=== PATIENT | male | born 1955 | race Caucasian/White ===

== ENCOUNTER → 2017-09-12 | Outpatient (CLI) | payer MEDICAID ==
[~2017-09-12] MED LIST: ACET-1966 PO; ALB0.5 IH; ALLO-2 PO; ASCO-191 PO; CYCL10TA29 PO; DAPA10TA PO; DAPA5TAB PO; DIA5 PO; EZET10TA41 PO; FENO145T PO; FLUT1DIS29 IH; FURO-45 PO; HYDR12.561 PO; LANI SUBQ; LEVA0.6320 IH; LISI20TA29 PO; MIRT-22 PO; MONT10TA4 PO; MULT1TAB64 PO; NEBI5TAB PO; OMEG-11 PO; OMEP40CA48 PO; OXYGENHOME INH; PROP10TA58 PO; PROP40TA45 PO; ROSU10TA3 PO; ROSU20TA23 PO; ROSU20TA3 PO; SIMV-54 PO; SITA100T PO; TOPI-119 PO; TRIA15OI20 TP; VERA240T12 PO; VERA360C6 PO; WARF-18 PO; WARF2.5T11 PO; [UNRECOGNIZED DRUG - CODE] PO
== END ==
LOC: LAB 14:33
PROVIDERS: ATTEND Internal Medicine Hematology
DX: D75.1 Secondary polycythemia (principal)
CPT/HCPCS: 36415; 85027

== ENCOUNTER 2017-09-18 13:26 | Outpatient (RCR) | payer MEDICAID ==
[~2017-09-18] VITALS: Ht 172.7 cm; Wt 106.7 kg
[~2017-09-18 13:26] MED LIST changes: +ROSU10TA13 PO; -ROSU10TA3 PO; +ROSU20TA13 PO; -ROSU20TA3 PO
[2017-09-18 13:37] VITALS: BP 118/74
[2017-09-18] MEDS ORDERED: MONT10TA PO (13:58)
[2017-09-18] MEDS ORDERED: VERA240T12 PO (13:58)
[2017-09-18] MEDS ORDERED: OXCA600T32 PO (13:58)
[2017-09-18] MEDS ORDERED: DULO60CA7 PO (13:58)
[2017-09-18] MEDS ORDERED: LEVA15HF IH (13:58)
[2017-09-18] MEDS ORDERED: NEBI5TAB PO (13:58)
[2017-09-18 14:22] LABS: PLATELET COUNT, AUTOMATED 298 K/uL (150-450)
[2017-09-18] MEDS ORDERED: IPRA3AMP21 IH (14:22)
[2017-09-18] MEDS ORDERED: LEVA0.6320 IH (14:22)
--- NOTE | 2017-09-18 20:20 | ONCOLOGY FOLLOW UP NOTE ---
EVENT DATE: September 18, 2017 DIAGNOSES 1. Secondary erythrocytosis. 2. Chronic obstructive pulmonary disease. 3. History of deep venous thrombosis left lower extremity. CHIEF COMPLAINT Patient is here today for followup of his secondary erythrocytosis. HEMATOLOGY HISTORY Patient is a 61-year-old male with past medical history of diabetes mellitus, hypertension, hyperlipidemia, COPD, ex-smoker, who was found recently to have high red blood cells and hemoglobin. His CBC on February 26, 2017 did reveal white blood cell count at 13.2 with absolute lymphocytic count 3.9 and absolute neutrophil count 8.6. Hemoglobin was 18.7, hematocrit 65.5% and red blood cells were 6.8. Patient has a history of COPD and he is an ex-smoker. JAK2 mutation analysis for V617F mutation and Exon 12 mutation came back negative, and the isobuteine level came back normal at 10, consistent with secondary erythrocytosis. HISTORY OF PRESENT ILLNESS Patient is here today for followup of his secondary erythrocytosis. He is complaining of some runny nose. He has also cough with expectoration, shortness of breath and wheezing. He has lower back pain. He has occasional headache and he is weak, tired and fatigued. PAST MEDICAL HISTORY 1. Erythrocytosis. 2. Diabetes mellitus. 3. Hypercholesterolemia. 4. Hypertension. 5. DVT left lower extremity on Coumadin for 10 years. 6. Congestive heart failure. 7. COPD. PAST SURGICAL HISTORY Appendectomy. SOCIAL HISTORY The patient is single with no children. He is disabled because of his congestive heart failure. He quit smoking 15 years ago after one and a half packs a day for 30 years. Denies any use of alcohol or illicit drugs. FAMILY HISTORY Mother had chronic leukemia. Sister had gynecologic cancer and also breast cancer. Father had bone cancer. CURRENT MEDICATIONS 1. Crestor 20 mg daily. 2. Verapamil 360 mg daily. 3. Farxiga 10 mg daily. 4. Insulin 78 units subcutaneously daily. 5. Cyclobenzaprine 10 mg at bedtime as needed. 6. Omeprazole 40 mg daily. 7. Advair 500/50 twice daily by inhalation. 8. Lasix 20 mg every three days. 9. Mirtazapine 15 mg at bedtime. 10. Lisinopril 20 mg twice daily. 11. Singulair 10 mg daily. 12. Multivitamin one daily. 13. [place]-3 fatty acids/fish oil 1000 mg capsule two daily. 14. Tylenol 325 mg two tablets as needed. 15. Oxygen as needed. 16. Vitamin C 1000 mg daily. 17. Coumadin 5 mg Friday, Friday, Friday, Friday, Friday, and 2.5 mg Friday and . ALLERGIES WELLBUTRIN and SOME ANTIBIOTICS, he does not remember the names. REVIEW OF SYSTEMS CONSTITUTIONAL: No appetite or weight change. No fever, chills or sweating. No recent infection. HEENT: Ears: No tinnitus or hearing problem. Nose: He has nasal discharge. Throat: No sore throat or mouth ulcers. Eyes: No diplopia or visual changes. RESPIRATORY: He has cough with expectoration, shortness of breath and wheezing. GASTROINTESTINAL: He has constipation. NEUROLOGICAL: He has occasional headache. HEMATOLOGICAL: He is weak, tired and fatigued. CARDIOVASCULAR: No chest pain, orthopnea, or paroxysmal nocturnal dyspnea (PND) . No edema. No palpitations. GENITOURINARY: No hematuria or dysuria. MUSCULOSKELETAL: He has lower back pain. NEUROLOGICAL: He has headache. SKIN: No skin rash or lumps. PSYCHIATRIC: No anxiety or depression. PHYSICAL EXAMINATION GENERAL: Looks stable. Well-developed, well-nourished, and in no acute distress. VITAL SIGNS: Blood pressure 118/74, pulse 88 per minute, respirations 16 per minute, temperature 96.7, pulse ox 91% on room air. HEENT: Head: Atraumatic. No sinus tenderness to palpation. Eyes: No icterus or conjunctivitis. Mouth and throat: No oral thrush or mucositis. NECK: Supple. No cervical or supraclavicular lymphadenopathy. LUNGS: Clear to auscultation and percussion bilaterally. HEART: Regular rate and rhythm. No gallops, murmurs, clicks or rubs. ABDOMEN: Soft and lax. No tenderness. No hepatosplenomegaly. No masses. EXTREMITIES: There is mild edema. LYMPHATICS: No peripheral lymphadenopathy. NEUROLOGICAL: He has tremors in the hands.PSYCHIATRIC: Mood and affect appear normal. SKIN: No skin rash, bruise or purpuric eruption. DIAGNOSTIC DATA CBC showed a white count of 10.2, hemoglobin 17.2, hematocrit 55%, platelets 278 ,000 and MCV 70.6. ASSESSMENT 1. Secondary erythrocytosis given that his JAK2 mutation analysis for V617F mutation and Exon 12 mutation came back negative, and his erythropoietin level was normal at 10. His current hematocrit is 55%. I am planning to proceed with a phlebotomy of 500 mL of blood if his hematocrit is at or above 55%. I am planning to check his CBC on a monthly basis, and I will see him in three months with CBC and will proceed with phlebotomy as indicated. 2. Lymphocytosis, and his flow cytometry was negative for lymphoproliferative disorder. We will continue to monitor. 3. Chronic obstructive pulmonary disease. 4. History of tobacco abuse. 5. History of deep venous thrombosis, left lower extremity, on Coumadin for a long time. 6. Diabetes mellitus, on treatment. 7. Hypertension, on treatment. PLAN 1. Phlebotomize 500 mL of blood if hematocrit at or above 55%. 2. CBC to be checked monthly. 3. Patient is to return in three months with CBC. 4. Patient is to contact us for any new concerns or complaints. ELISE
== END 2017-10-03 09:14 | disposition home or self-care (01) ==
LOC: ONC 13:26
PROVIDERS: ATTEND Internal Medicine Hematology
DX: D75.1 Secondary polycythemia (principal); D72.820 Lymphocytosis (symptomatic); J44.9 Chronic obstructive pulmonary disease, unspecified; Z86.718 Personal history of other venous thrombosis and embolism; Z79.01 Long term (current) use of anticoagulants; E11.9 Type 2 diabetes mellitus without complications; I10 Essential (primary) hypertension; R05 Cough; R06.02 Shortness of breath; M54.5 Low back pain; R53.1 Weakness; R53.83 Other fatigue; Z87.891 Personal history of nicotine dependence; K59.00 Constipation, unspecified
CPT/HCPCS: 36415; 85025; G0463; 99212

== ENCOUNTER → 2017-10-13 | Outpatient (CLI) | payer MEDICAID ==
[~2017-10-13] MED LIST changes: +DULO60CA7 PO; +IPRA3AMP21 IH; +LEVA15HF IH; +MONT10TA PO; +OXCA600T32 PO
== END ==
LOC: LAB 14:21
PROVIDERS: ATTEND Internal Medicine Hematology
DX: D75.1 Secondary polycythemia (principal)
CPT/HCPCS: 36415; 85027; 99195

== ENCOUNTER → 2017-11-11 | Outpatient (CLI) | payer MEDICAID ==
[~2017-11-11] MED LIST changes: -WARF-18 PO; +WARF5TAB23 PO
[2017-11-11 14:49] VITALS: BP 135/86
== END ==
LOC: LAB 14:24
PROVIDERS: ATTEND Internal Medicine Hematology
DX: D75.1 Secondary polycythemia (principal)
CPT/HCPCS: 85027

== ENCOUNTER 2017-11-19 15:58 | Emergency (ER) | payer MEDICAID ==
[~2017-11-19] VITALS: Ht 175.3 cm; Wt 106.6 kg
[~2017-11-19 15:58] MED LIST changes: -FENO145T PO; +FENO145T36 PO
[2017-11-19 16:01] VITALS: BP 134/71
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
[2017-11-19 16:36] LABS: PLATELET COUNT, AUTOMATED 326 K/uL (150-450)
[2017-11-19] MEDS ORDERED: MIRT45TA68 PO (16:36)
[2017-11-19] MEDS ORDERED: TOPI-120 PO (16:36)
[2017-11-19] MEDS ORDERED: CYCL10TA29 PO (21:31)
[2017-11-19] MEDS ORDERED: LANI SUBQ (21:31)
[2017-11-19] MEDS ORDERED: DULA1.5P SQ (21:31)
[2017-11-19] MEDS ORDERED: NUT.237L82 (21:31)
[2017-11-19] MEDS ORDERED: ABILIF5PT PO (21:31)
[2017-11-20] MEDS ORDERED: FURO-45 PO (15:44)
[2017-11-20] MEDS ORDERED: LISI20TA29 PO (15:45)
[2017-11-20] MEDS ORDERED: CHOL10005 PO (15:48)
== END 2017-11-19 17:17 ==
LOC: ER 16:06
DX: R45.850 Homicidal ideations (principal)
CPT/HCPCS: 36415; 80156; 80164; 80178; 80305; 81001; 83735; 84443; 85025; 99284; G0480; 80320; 80329; 82040; 82247; 82310; 82374; 82435; 82565; 82947; 84075; 84132; 84155; 84295; 84450; 84460; 84520

== ENCOUNTER 2017-11-19 16:45 | Inpatient (IN) | payer MEDICAID ==
[~2017-11-19] VITALS: Ht 175.3 cm; Wt 106.6 kg
[~2017-11-19 16:45] MED LIST changes: +MIRT45TA68 PO; +TOPI-120 PO
[2017-11-19 20:37] VITALS: BP 137/90
[2017-11-19] MEDS ORDERED: NUT.237L82 (21:31)
[2017-11-19] MEDS ORDERED: LANI SUBQ (21:31)
[2017-11-19] MEDS ORDERED: DULA1.5P SQ (21:31)
[2017-11-19] MEDS ORDERED: CYCL10TA29 PO (21:31)
[2017-11-19] MEDS ORDERED: ABILIF5PT PO (21:31)
[2017-11-19] MEDS ORDERED: LISINOPRIL 20 MG TAB PO SCH (21:40)
[2017-11-19] MEDS ORDERED: ARIPiprazole 10 MG TAB PO SCH (21:40)
[2017-11-19] MEDS ORDERED: TOPIRAMATE 25 MG TAB PO SCH (21:40)
[2017-11-19] MEDS: ARIPiprazole 10 MG TAB PO SCH (22:43)
[2017-11-19] MEDS: MIRTAZAPINE PO SCH (22:43)
[2017-11-19] MEDS: LISINOPRIL 20 MG TAB PO SCH (22:43)
[2017-11-19] MEDS: CYCLOBENZAPRINE HCL 10 MG TAB PO SCH (22:43)
[2017-11-19] MEDS: TOPIRAMATE 25 MG TAB PO SCH (22:44)
[2017-11-20 07:00] VITALS: BP 104/66
[2017-11-20] MEDS ORDERED: DULoxetine HCL 30 MG CAPCR PO SCH (08:00)
[2017-11-20] MEDS: LISINOPRIL 20 MG TAB PO SCH ×2 (08:36→20:33)
[2017-11-20] MEDS: DULoxetine HCL 30 MG CAPCR PO SCH ×2 (08:36→13:55)
[2017-11-20] MEDS: TOPIRAMATE 25 MG TAB PO SCH ×2 (08:37→20:32)
[2017-11-20 08:51] LABS: INR 0.9
[2017-11-20] MEDS ORDERED: WARFARIN SOD 5 MG TAB PO SCH (13:00)
[2017-11-20] MEDS ORDERED: FURO-45 PO (15:44)
[2017-11-20] MEDS ORDERED: LISI20TA29 PO (15:45)
[2017-11-20] MEDS ORDERED: CHOL10005 PO (15:48)
[2017-11-20] MEDS ORDERED: ACETAMINOPHEN 325 MG TAB PO PRN (15:55)
[2017-11-20] MEDS: ARIPiprazole 10 MG TAB PO SCH (20:31)
[2017-11-20] MEDS: PANTOPRAZOLE SOD 20 MG TABEC PO SCH (20:32)
[2017-11-20] MEDS: MIRTAZAPINE PO SCH (20:32)
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
[2017-11-20] MEDS: CYCLOBENZAPRINE HCL 10 MG TAB PO SCH (20:33)
[2017-11-20] MEDS ORDERED: MIRTAZAPINE 30 MG TAB 30 MG TAB PO SCH ×2 (21:00)
[2017-11-20] MEDS ORDERED: INSULIN GLARGINE 100 U/ML 3 ML PEN SUBQ SCH (21:00)
[2017-11-20] MEDS ORDERED: ROSUVASTATIN CALCIUM 10 MG TAB PO SCH ×2 (21:00)
[2017-11-20] MEDS ORDERED: CYCLOBENZAPRINE HCL 10 MG TAB PO SCH ×2 (21:00)
[2017-11-20] MEDS ORDERED: ARIPiprazole 10 MG TAB PO SCH (21:00)
[2017-11-20 21:28] VITALS: BP 122/63
[2017-11-21 03:22] VITALS: BP 108/75
[2017-11-21] MEDS: PANTOPRAZOLE SOD 20 MG TABEC PO SCH (08:20)
[2017-11-21] MEDS: TOPIRAMATE 25 MG TAB PO SCH (08:20)
[2017-11-21] MEDS: LISINOPRIL 20 MG TAB PO SCH (08:22)
[2017-11-21] MEDS: DULoxetine HCL 30 MG CAPCR PO SCH ×2 (08:27→13:58)
[2017-11-21] MEDS ORDERED: CHOLECALCIFEROL 1000 UNIT TAB PO SCH (09:00)
[2017-11-21] MEDS ORDERED: WARF5TAB23 PO (12:37)
[2017-11-21] MEDS ORDERED: ACET-1966 PO (12:47)
--- NOTE | 2017-11-21 21:07 | DISCHARGE SUMMARY ---
DATE OF ADMISSION: November 19, 2017 DATE OF DISCHARGE: November 21, 2017 The patient was seen on the morning of November 21, 2017, at approximately 0940 hours concerning this dictation. FINAL DIAGNOSES 1. Adjustment disorder with disturbance of emotion. 2. Persisting depressive disorder. 3. Social and medical stressors. 4. Rule out sleep apnea. 5. Rule out mood disorder secondary to untreated sleep apnea. REASON FOR ADMISSION This is a 61-year-old male who has [facility] living [facility]. The patient had been following up with [facility]. Live therapist had met the patient in home. The patient had voiced threats of harm to a neighbor. Outpatient providers worked together to bring the patient to the Emergency Room. The patient was placed under an emergency detainment. He was admitted without incident. Throughout stay, the patient remained alert, oriented, and appeared to be an overall accurate historian. The patient admitted to making threats against neighbor, however, was adamant about not going through with them. The patient's neighbor is aware of these threats. The patient was not aggressive on the unit, overall very cooperative and polite throughout his stay. No parasuicidal behaviors were noted. The patient remained on same regimen of outpatient medications while on the unit with the exception of Cymbalta that would be no longer given q.a.m. and at bedtime due to its potential activating effects in this patient who is requiring Remeron to sleep, also likely suffering from sleep apnea. Cymbalta was changed to q.a.m. and q. 1400-hour dosing. The patient was found to have oxygen saturations that dropped below 80 on many occasions throughout the night via pulse oximetry, and the patient was scheduled for a sleep study. The patient's mood improved. The patient was discharged to home adamantly denying suicidal ideation. The patient would continue to follow up with outpatient and home health care nursing as well, who were contacted and saw no gross changes in the patient's behavior. PHYSICAL EXAMINATION Please see emergency room note. Vital signs at time of admission were temperature 97.8, pulse 103, respiratory rate 20, blood pressure 134/71, pulse oximetry 93% on room air. Vital signs at time of discharge were temperature 98.2, pulse 66, respiratory rate 18, blood pressure 108/75, pulse oximetry 93% on room air while awake, while lying down 83%. LABORATORY DATA CBC upon admission notable for white blood cells elevated at 13.6, RBCs elevated at 7.87, and hematocrit elevated at 54.9. Chemistry panel notable for random glucose 73 upon admission. TSH 0.05 and low. Urinalysis notable for urine glucose present. Toxicology screen upon admission was notably negative for substances of abuse. Various labs were drawn since such as lithium, carbamazepine, and valproic acid. The patient was not on any of these, and they were all undetectable. Serum alcohol was less than 10. PT was 12.1. INR noted to be 0.90. This patient is chronically treated. He has a history of blood clots and polycythemia vera. Oxcarbazepine metabolite pending at time of this dictation. Free T4 noted to be 0.66, free T3 of 2.88. Glucose ranged between a low of 62 and 156 on the unit. CONSULTATIONS None. TREATMENT The patient received medications and participated in individual and group therapy. HOSPITAL COURSE The patient remained very calm, cooperative, and polite throughout his stay. The patient was exhibiting no signs of dementia and no signs of combative behavior. The patient is, however, likely suffering from obstructive sleep apnea which could make most, if not all of his medical conditions worse or be the source of them. The patient historically is aware of this, but refuses to wear nasal cannula oxygen at night. The patient, again, was cooperative with the interview. The patient's providers are also aware of need for further thyroid examination at this time. The patient's home health nursing agency was contacted. They had no difficulties with continuing care with the patient. However, [facility] has terminated care of the patient. CONDITION OF PATIENT ON DISCHARGE Stable. Considered minimal risk to himself or others and appropriate for outpatient care. DISPOSITION The patient discharged to home. The patient would follow up with sleep study as scheduled. He would take medications as prescribed previously to admission. See medication recommendations. The patient would also follow up with home health. The patient would change Cymbalta from a.m. dosing and p.m. dosing to a.m. dosing and q. 1400-hour dosing. The patient would follow up with outpatient providers as scheduled. Risks, benefits, and alternatives of above discharge plan were discussed. Informed consent was given to proceed with the above discharge plan by this competent patient. ELISE
[2017-11-24] MEDS ORDERED: WARFARIN SOD 2.5 MG TAB PO SCH (13:00)
== END 2017-11-21 14:20 | disposition home or self-care (01) | DRG 882 ==
LOC: BHS 16:45
PROVIDERS: ADMIT Psychiatry & Neurology Psychiatry; ATTEND Psychiatry & Neurology Psychiatry
DX: F43.29 Adjustment disorder with other symptoms (principal); F34.1 Dysthymic disorder; R45.850 Homicidal ideations; G47.33 Obstructive sleep apnea (adult) (pediatric); F41.8 Other specified anxiety disorders; G47.30 Sleep apnea, unspecified; F39 Unspecified mood [affective] disorder; I10 Essential (primary) hypertension; D45 Polycythemia vera; E11.9 Type 2 diabetes mellitus without complications; Z62.810 Personal history of physical and sexual abuse in childhood; Z86.718 Personal history of other venous thrombosis and embolism; Z81.8 Family history of other mental and behavioral disorders; Z81.1 Family history of alcohol abuse and dependence; Z81.3 Family history of other psychoactive substance abuse and dependence; Z79.01 Long term (current) use of anticoagulants; Z88.8 Allergy status to other drugs, medicaments and biological substances; I25.2 Old myocardial infarction; Z87.891 Personal history of nicotine dependence
CPT/HCPCS: 36415; 36416; 80183; 82948; 84439; 84481; 85610; J1815

== ENCOUNTER 2018-02-05 12:48 | Outpatient (RCR) | payer MEDICAID ==
[2017-12-18 13:21] VITALS: BP 97/67
--- NOTE | 2017-12-18 17:47 | ONCOLOGY FOLLOW UP NOTE ---
EVENT DATE: December 18, 2017 DIAGNOSES 1. Secondary erythrocytosis. 2. Chronic obstructive pulmonary disease. 3. History of deep venous thrombosis left lower extremity. CHIEF COMPLAINT Patient is here today for followup of his secondary erythrocytosis. HEMATOLOGY HISTORY Patient is a 61-year-old male with past medical history of diabetes mellitus, hypertension, hyperlipidemia, COPD, ex-smoker, who was found recently to have high red blood cells and hemoglobin. His CBC on February 26, 2017 did reveal white blood cell count at 13.2 with absolute lymphocytic count 3.9 and absolute neutrophil count 8.6. Hemoglobin was 18.7, hematocrit 65.5% and red blood cells were 6.8. Patient has a history of COPD and he is an ex-smoker. JAK2 mutation analysis for V617F mutation and Exon 12 mutation came back negative, and the isobuteine level came back normal at 10, consistent with secondary erythrocytosis. HISTORY OF PRESENT ILLNESS Patient is here today for followup of his secondary erythrocytosis. He is doing fine currently. He is complaining of nasal discharge and epistaxis. He has cough with shortness of breath. He has alternating diarrhea and constipation. He has pain in the hips bilaterally. He has also some tingling at the tips of his fingers and headache. PAST MEDICAL HISTORY 1. Erythrocytosis. 2. Diabetes mellitus. 3. Hypercholesterolemia. 4. Hypertension. 5. DVT left lower extremity on Coumadin for 10 years. 6. Congestive heart failure. 7. COPD. PAST SURGICAL HISTORY Appendectomy. SOCIAL HISTORY The patient is single with no children. He is disabled because of his congestive heart failure. He quit smoking 15 years ago after one and a half packs a day for 30 years. Denies any use of alcohol or illicit drugs. FAMILY HISTORY Mother had chronic leukemia. Sister had gynecologic cancer and also breast cancer. Father had bone cancer. CURRENT MEDICATIONS 1. Crestor 20 mg daily. 2. Verapamil 360 mg daily. 3. Farxiga 10 mg daily. 4. Insulin 78 units subcutaneously daily. 5. Cyclobenzaprine 10 mg at bedtime as needed. 6. Omeprazole 40 mg daily. 7. Advair 500/50 twice daily by inhalation. 8. Lasix 20 mg every three days. 9. Mirtazapine 15 mg at bedtime. 10. Lisinopril 20 mg twice daily. 11. Singulair 10 mg daily. 12. Multivitamin one daily. 13. [place]-3 fatty acids/fish oil 1000 mg capsule two daily. 14. Tylenol 325 mg two tablets as needed. 15. Oxygen as needed. 16. Vitamin C 1000 mg daily. 17. Coumadin 5 mg Friday, Friday, Friday, Friday, Friday, and 2.5 mg Friday and . ALLERGIES WELLBUTRIN and SOME ANTIBIOTICS, he does not remember the names. REVIEW OF SYSTEMS CONSTITUTIONAL: No appetite or weight change. No fever, chills or sweating. No recent infection. HEENT: Ears: No tinnitus or hearing problem. Nose: He has nasal discharge and epistaxis.. Throat: No sore throat or mouth ulcers. Eyes: No diplopia or visual changes. RESPIRATORY: He has cough and shortness of breath. No expectoration or wheezing. GASTROINTESTINAL: He has alternating diarrhea and constipation. NEUROLOGICAL: He has occasional headache. HEMATOLOGICAL: He is weak, tired and fatigued. CARDIOVASCULAR: No chest pain, orthopnea, or paroxysmal nocturnal dyspnea (PND) . No edema. No palpitations. GENITOURINARY: No hematuria or dysuria. MUSCULOSKELETAL: He has pain in the hips bilaterally. NEUROLOGICAL: He has tingling and numbness at the tips of the fingers, and headache occasionally. SKIN: No skin rash or lumps. PSYCHIATRIC: No anxiety or depression. PHYSICAL EXAMINATION GENERAL: Looks stable. Well-developed, well-nourished, and in no acute distress. VITAL SIGNS: Blood pressure 97/64, pulse 94 per minute, respirations 16 per minute, temperature 97.1, pulse ox 90% on room air. HEENT: Head: Atraumatic. No sinus tenderness to palpation. Eyes: No icterus or conjunctivitis. Mouth and throat: No oral thrush or mucositis. NECK: Supple. No cervical or supraclavicular lymphadenopathy. LUNGS: Clear to auscultation and percussion bilaterally. HEART: Regular rate and rhythm. No gallops, murmurs, clicks or rubs. ABDOMEN: Soft and lax. No tenderness. No hepatosplenomegaly. No masses. EXTREMITIES: There is mild edema. LYMPHATICS: No peripheral lymphadenopathy. NEUROLOGICAL: He has tremors in the hands.PSYCHIATRIC: Mood and affect appear normal. SKIN: No skin rash, bruise or purpuric eruption. DIAGNOSTIC DATA CBC showed a white count of 13.6, hemoglobin 16.9, hematocrit 54.9%, platelets 326,000. Chem panel normal except BUN 23, chloride 96, sodium 136. Other parameters are normal. ASSESSMENT 1. Secondary erythrocytosis given that JAK2 mutation analysis for V617F mutation and Exon 12 mutation came back negative and his erythropoietin level was normal at 10. His current hematocrit is 54.9%, and I am planning to proceed with phlebotomy of 500 mL of blood, which the patient needs roughly every other month. I will continue phlebotomy whenever his hematocrit is above 55%. I will see him again in three months with CBC, and I will check his CBC in six weeks from now. 2. History of lymphocytosis, and flow cytometry was negative for lymphoproliferative disorder. We will continue to monitor. 3. Chronic obstructive pulmonary disease. 4. History of tobacco abuse. 5. History of deep venous thrombosis, left lower extremity, on Coumadin. 6. Diabetes mellitus on treatment. 7. Hypertension. PLAN 1. Phlebotomize 500 mL of blood if hematocrit above or at 55%. 2. CBC to be checked every six weeks. 3. Patient is to return in three months with CBC. 4. Patient is to contact us for any new concerns or complaints. [facility]
[~2018-02-05 12:48] MED LIST changes: +ABILIF5PT PO; +CHOL10005 PO; +DULA1.5P SQ; +NUT.237L82
== END 2018-03-17 ==
LOC: SPU 12:48
PROVIDERS: ATTEND Internal Medicine Hematology
DX: D75.1 Secondary polycythemia (principal); D72.820 Lymphocytosis (symptomatic); J44.9 Chronic obstructive pulmonary disease, unspecified; Z86.718 Personal history of other venous thrombosis and embolism; Z79.01 Long term (current) use of anticoagulants; E11.9 Type 2 diabetes mellitus without complications; I10 Essential (primary) hypertension; R05 Cough; R06.02 Shortness of breath; R19.7 Diarrhea, unspecified; K59.00 Constipation, unspecified; Z87.891 Personal history of nicotine dependence; Z79.899 Other long term (current) drug therapy; Z79.4 Long term (current) use of insulin; R53.1 Weakness; R53.83 Other fatigue
CPT/HCPCS: 36415; 85027; G0463; 99212

== ENCOUNTER → 2018-04-08 | Outpatient (REF) | payer MEDICAID ==
[~2018-04-08] MED LIST changes: +IPRA3AMP10 IH; -IPRA3AMP21 IH; -ROSU10TA13 PO; +ROSU10TA5 PO; -ROSU20TA13 PO; +ROSU20TA5 PO
[2018-04-08 15:56] LABS: PLATELET COUNT, AUTOMATED 287 K/uL (150-450)
== END ==
LOC: ZZSENDIN 15:35
PROVIDERS: ATTEND Physician Assistant
DX: D75.1 Secondary polycythemia (principal)
CPT/HCPCS: 85025

== ENCOUNTER → 2018-05-27 | Outpatient (CLI) | payer MEDICAID ==
--- NOTE | 2018-05-27 15:20 | RADIOLOGY IMAGING REPORT ---
FACILITY: [facility] PATIENT NAME: Cirilo Savage : 1955 MR: [id number] V: [id number] EXAM DATE: ORDERING PHYSICIAN: HUI PRAKASH TECHNOLOGIST: Location: [facility] - [place] Patient: Cirilo Savage : 1955 Visit/Account:[id number] Date of Sevice: 05/27/2018 CHEST PA AND LAT History: Shortness of breath and cough and chest pain x1 week FINDINGS: Comparison studies: None. Tubes and Lines: None. Lungs and pleura: There is slight indistinct appearance to the left cardiac border but I believe th is is related to pericardial fat pad which can be seen in the lateral view. I do not believe it repr esents lingular consolidation. Lung parenchyma is well-aerated. Mediastinum: normal. Cardiac silhouette: normal . Osseous structures: Unremarkable for age . IMPRESSION: Negative exam Report Dictated By: Jaylon Madison MD at 05/27/2018 3:13 PM Report E-Signed By: Jaylon Madison MD at 05/27/2018 3:16 PM WSN:[id number]
== END ==
LOC: RAD 14:36
PROVIDERS: ATTEND Physician Assistant Medical
DX: R06.02 Shortness of breath (principal)
CPT/HCPCS: 71046

== ENCOUNTER → 2018-06-05 | Outpatient (REF) | payer MEDICAID | LOC: ZZSENDIN 15:42 | PROVIDERS: ATTEND Physician Assistant | DX: I50.40 Unspecified combined systolic (congestive) and diastolic (congestive) heart failure (principal) | CPT/HCPCS: 83880 ==

== ENCOUNTER → 2018-06-15 | Outpatient (CLI) | payer MEDICAID ==
[~2018-06-15] MED LIST changes: +REGADENOSON 0.4 MG/5 ML SYR ONE
--- NOTE | 2018-06-15 14:50 | RT STRESS TEST REPORT ---
[place] [facility] [place] PATIENT NAME: NIKOLAY RODRIGUZE : [id number] MR: [id number] V: [id number] EXAM DATE: ORDERING PHYSICIAN: HUI PRAKASH TECHNOLOGIST: [employer] Time: 2018-06-15 14:29:01 Total Exercise Time: 00:01:00 Test Indications: Chest Discomfort Medications: see nuc med sheet Protocol: LEXISCAN Max HR: 097 BPM 60% of Pred: 160 BPM Max BP: 153/088 mmHG Max Work Load: 1.0 METS The patient did not have any chest pain or ST depression during the test. See the nuclear images for details. Confirmed by INES BELTRE ([id number]) on 06/15/2018 2:49:55 PM Referred By: Heriberto Addison Overread By: INES BELTRE
--- NOTE | 2018-06-16 10:23 | RADIOLOGY IMAGING REPORT ---
FACILITY: [facility] PATIENT NAME: Cirilo Savage : 1955 MR: [id number] V: [id number] EXAM DATE: ORDERING PHYSICIAN: HUI PRAKASH TECHNOLOGIST: Location: [facility] - [place] Patient: Cirilo Savage : 1955 Visit/Account:[id number] Date of Sevice: 06/15/2018 EXAMINATION: Single isotope SPECT imaging with regadenoson infusion and gated SPECT imaging. DATE OF EXAMINATION: June 15, 2018. DATE OF INTERPRETATION: June 16, 2018. REQUESTING PHYSICIAN: HUI PRAKASH. INDICATION: The patient is a 62-year-old male evaluated for CAD. PROCEDURE: After informed consent the patient received an intravenous injection of 12.9 mCi of Tc-99 m sestamibi followed at an appropriate time interval by rest imaging. The patient then subsequently received an intravenous infusion of 0.4 mg of regadenoson per protocol without complication. Resting heart rate was 81 bpm with a peak heart rate of 97 bpm. Blood pressure at rest was 130 / 85 and fol lowing infusion was 153 / 88. Baseline EKG demonstrates normal sinus rhythm with poor R wave progres jesica. There were no diagnostic EKG changes of ischemia following infusion. Symptoms were nonspecifi c. The patient then received an intravenous injection of 29.9 mCi of Tc-99m sestamibi followed by st ress imaging. RAW DATA: Examination of the summed raw data revealed a fair quality study. MYOCARDIAL PERFUSION: The tomographic images demonstrate normal perfusion both at rest and at stress .. GATED IMAGES: The gated images demonstrate an ejection fraction of 70% or greater with normal wall m otion. IMPRESSION: 1. Baseline EKG shows normal sinus rhythm without significant changes during stress. 2. Normal myocardial perfusion scan. 3. Normal LV systolic function; LVEF 70% or greater%. 4. Based on the results of this exam, the patient appears to be at low risk for future cardiovascular events. Report Dictated By: Go Hickman MD at 06/16/2018 10:16 AM Report E-Signed By: Go Hickman MD at 06/16/2018 10:19 AM WSN:[id number]
== END ==
LOC: NUC 00:52
PROVIDERS: ATTEND Physician Assistant Medical
DX: R06.02 Shortness of breath (principal)
CPT/HCPCS: 78452; 93017; A9500; J2785

== ENCOUNTER → 2018-06-17 | Outpatient (REF) | payer MEDICAID ==
[~2018-06-17] MED LIST changes: -REGADENOSON 0.4 MG/5 ML SYR ONE
== END ==
LOC: ZZSENDIN 15:04
PROVIDERS: ATTEND Physician Assistant
DX: R06.02 Shortness of breath (principal)
CPT/HCPCS: 85379

== ENCOUNTER → 2018-06-22 | Outpatient (CLI) | payer MEDICAID | LOC: NUC 08:40 | PROVIDERS: ATTEND Physician Assistant | DX: Z02.9 Encounter for administrative examinations, unspecified (principal) ==

== ENCOUNTER → 2018-06-25 | Outpatient (CLI) | payer MEDICAID ==
--- NOTE | 2018-06-25 14:06 | RADIOLOGY IMAGING REPORT ---
[place] [facility] [place] Cirilo Savage : 1955 MR: [id number] V: [id number] EXAM DATE: ORDERING PHYSICIAN: TARA MONTANA TECHNOLOGIST: Location: [facility] - [place] Patient: Cirilo Savage : 1955 Visit/Account:[id number] Date of Sevice: 06/25/2018 CHEST W/O CONTRAST History: Shortness of breath, history COPD, chest tightness and cough x1 month TECHNIQUE: Contiguous axial images were performed through the chest to the level of the adrenal gla nds. No IV contrast was administered. Coronal and sagittal reformatting was also performed. COMPARISON STUDIES: Two-view chest May 27, 2018. Lungs / Pleura: negative. Mediastinum/nodes: There is a small nonspecific mediastinal lymph nodes including small prevascular space, subcarinal and paratracheal lymph nodes nodes. Heart and vessels: negative. Musculoskeletal / Body wall: Spondylotic changes of the thoracic spine Upper abdomen: Tiny incidental calcification in the right adrenal gland may be related to prior hem orrhage IMPRESSION: No demonstration of pulmonary infiltrates emphysema or bronchiectasis. Report Dictated By: Maddy Cárdenas MD at 06/25/2018 1:53 PM Report E-Signed By: Maddy Cárdenas MD at 06/25/2018 2:02 PM WSN:[email or web address]
== END ==
LOC: CT 02:40
PROVIDERS: ATTEND Physician Assistant
DX: M47.894 Other spondylosis, thoracic region (principal); E27.49 Other adrenocortical insufficiency
CPT/HCPCS: 71250

== ENCOUNTER → 2018-09-25 | Outpatient (CLI) | payer MEDICAID ==
[~2018-09-25] MED LIST changes: +LOR5/325 PO; +NEBI10TA4 PO; +TOPI-121 PO
== END ==
LOC: LAB 12:03
PROVIDERS: ATTEND Internal Medicine Cardiovascular Disease
DX: R06.02 Shortness of breath (principal); I10 Essential (primary) hypertension
CPT/HCPCS: 36415; 83880

== ENCOUNTER → 2018-09-29 | Outpatient (CLI) | payer MEDICAID | LOC: US 01:20 | PROVIDERS: ATTEND Internal Medicine Cardiovascular Disease | DX: I07.1 Rheumatic tricuspid insufficiency (principal); I51.7 Cardiomegaly | CPT/HCPCS: C8929; Q9957 ==

== ENCOUNTER 2018-10-20 14:25 | Outpatient (RCR) | payer MEDICAID ==
[~2018-10-20 14:25] MED LIST changes: +MIRT45TA4 PO; -MIRT45TA68 PO
--- NOTE | 2018-10-21 09:41 | RADIOLOGY IMAGING REPORT ---
FACILITY: [facility] - [place] PATIENT NAME: Cirilo Savage : 1955 MR: [id number] V: [id number] EXAM DATE: ORDERING PHYSICIAN: TARA MONTANA TECHNOLOGIST: [place] [facility] [place] Patient: Cirilo Savage : 1955 Visit/Account:[id number] Date of Sevice: 10/20/2018 NM THYROID UPTAKE - MULT. DE Indication: Evaluate for hyperthyroidism. Comparison: None. Radiotracer: 38.6 mCi I-123 was ingested. Images were obtained 4 hours and 24 hours after radiotrace r ingested.. Findings: 4 hour uptake is 6.1%. 24 hour radiotracer uptake is 10.2% (normal is 5-35% uptake). There is symmetric uptake in both right and left thyroid lobe. There is no evidence of a hot nodule or col d defect. IMPRESSION: Normal 6 hour and normal 24 hour I-123 thyroid uptake scan. No evidence of hyperthyroidis m. Report Dictated By: Navid Mir at 10/21/2018 9:24 AM Report E-Signed By: Navid Mir at 10/21/2018 9:36 AM WSN:[id number]
== END 2018-10-20 18:00 | disposition home or self-care (01) ==
LOC: EDSTATUS 14:25 → NUC 14:25
PROVIDERS: ATTEND Physician Assistant
DX: E05.90 Thyrotoxicosis, unspecified without thyrotoxic crisis or storm (principal)
CPT/HCPCS: 78014; A9516

== ENCOUNTER → 2019-01-28 | Outpatient (CLI) | payer MEDICAID ==
[~2019-01-28] MED LIST changes: -ROSU20TA23 PO; +ROSU20TA24 PO; -VERA240T12 PO; +VERA240T95 PO
== END ==
LOC: LAB 13:18
PROVIDERS: ATTEND Psychiatry & Neurology Neurology
DX: R25.1 Tremor, unspecified (principal)
CPT/HCPCS: 36415; 82040; 82140; 82247; 82248; 84075; 84155; 84450; 84460; 86038

== ENCOUNTER 2019-02-17 21:05 | Inpatient (IN) | payer MEDICAID ==
[~2019-02-17] VITALS: Ht 172.7 cm; Wt 94.8 kg
[~2019-02-17 21:05] MED LIST changes: -BENZ1 PO; -DEUT6TAB PO; -LISI-362 PO; -LURA60TA PO; -METH5TAB87 PO; -MIRT45TA8 PO; -TOPI50TA92 PO; -VENL150T10 PO
[2019-02-17] MEDS ORDERED: NS(*) 0.9% 1000 ML BAG 1,000 ML IV ONE (21:12)
[2019-02-17] MEDS ORDERED: DIPHTH/TETANUS/ACEL. PERTUSSIS IM ONE (21:15)
[2019-02-17 21:24] LABS: PLATELET COUNT, AUTOMATED 288 K/uL (150-450)
[2019-02-17 21:34] LABS: INR 2.01
[2019-02-17] MEDS ORDERED: IOPAMIDOL 76% 100 ML INFUS BTL 100 ML ONE (21:36)
--- NOTE | 2019-02-17 21:39 | ER Report ---
History and Physical Time Seen By MD: 21:39 HPI/ROS CHIEF COMPLAINT: Found down HISTORY OF PRESENT ILLNESS: Patient is a 63-year-old male here after being found down at home suspected be down for the last 2 days. Home health came to evaluate the patient and heard him yelling for help. Patient reports that he attempted to get up and tripped and fell and complains of left sided back, neck pain, left hip pain and was unable to get up after falling. Patient has mildly disoriented, E fast was negative. REVIEW OF SYSTEMS: Constitutional: No fever, no chills, disoriented Eyes: No discharge. ENT: No sore throat. Cardiovascular: No chest pain, no palpitations. Respiratory: No cough, no shortness of breath. Gastrointestinal: No abdominal pain, no vomiting. Genitourinary: No hematuria. Musculoskeletal: No back pain, + left hip pain Skin: No rashes. Neurological: Neurovascular intact in the distal extremities, mildly disoriented, no cranial nerve deficits Allergies: Coded Allergies: atorvastatin (Verified Adverse Reaction, Intermediate, Myalgia, 08/31/18) Home Meds Active Scripts Hydrocodone Bit/Acetaminophen (HYDROCODON-ACETAMINOPHEN 5-325) 1 Each Tablet, 1 EACH PO Q4-6H PRN for PAIN, #12 TAKE ONE TABLET BY MOUTH EVERY 4-6 HOURS NEEDED FOR PAIN Prov:JUAN MIGUEL NEWELL DO 08/31/18 Dapagliflozin Propanediol (Farxiga) 10 Mg Tablet, 1 TAB PO DAILY, #30 TAB 11 Refills Prov:CHERI MALCOLM MD 08/28/16 Omeprazole (OMEPRAZOLE) 40 Mg Capsule.dr, 1 CAP PO BID, #180 CAP 2 Refills Prov:CHERI MALCOLM MD 06/17/16 Reported Medications Verapamil Hcl (VERAPAMIL ER) 240 Mg Tablet.er, 240 MG PO QDAY 08/31/18 Topiramate (TOPAMAX) 100 Mg Tablet, 120 MG PO QDAY 08/31/18 Insulin Glargine (LANTUS) 100 Unit/Ml Soln, 52 UNIT SUBQ HS, ML 08/31/18 Nebivolol Hcl (BYSTOLIC) 10 Mg Tab, 10 MG PO BID, TAB 08/31/18 Acetaminophen (TYLENOL) 325 Mg Tablet, 650 MG PO Q6H PRN for PAIN, TAB 11/21/17 Warfarin Sodium (WARFARIN SODIUM) 5 Mg Tablet, 5 MG PO QDAY, TAB 5 MG ON SIMMS, , WE, TH, SA @ 1:00PM 11/21/17 Cholecalciferol (Vitamin D3) (VITAMIN D3) 1,000 Unit Tablet, 2000 UNIT PO QDAY, TAB 11/20/17 Lisinopril (LISINOPRIL) 20 Mg Tablet, 20 MG PO QDAY, TAB 11/20/17 Furosemide (FUROSEMIDE) 20 Mg Tablet, 1 TAB PO QDAY, TAB 11/20/17 Cyclobenzaprine Hcl (CYCLOBENZAPRINE HCL) 10 Mg Tablet, 10 MG PO QHS, #9 TAB 11/19/17 Aripiprazole (ABILIFY) 5 Mg Tablet, 5 MG PO QHS, #10 TAB 11/19/17 Dulaglutide (Trulicity) 1.5 Mg/0.5 Ml Pen.injctr, 1.5 MG SQ QWK EACH Friday11/19/17 Nut.tx.gluc.intoler,Lac-Fr,Soy (Glucerna) 237 Ml Liquid, BID 11/19/17 Mirtazapine (MIRTAZAPINE) 45 Mg Tab.rapdis, 45 MG PO QHS 11/19/17 Oxcarbazepine (TRILEPTAL) 600 Mg Tablet, 600 MG PO TID 09/18/17 Montelukast Sodium (SINGULAIR) 10 Mg Tablet, 1 TAB PO QDAY, TAB 09/18/17 Duloxetine HCl (Duloxetine HCl) 60 Mg Capsule.dr, 60 MG PO BID TAKE AT 8:00 AM AND 2:00 PM 09/18/17 Rosuvastatin Calcium (CRESTOR) 20 Mg Tablet, 20 MG PO QHS 01/28/17 Multivitamin (MULTI VITAMIN DAILY) 1 Each Tablet, 1 TAB PO DAILY 03/19/16 York-3 Fatty Acids/Fish Oil (FISH OIL 1,000 MG CAPSULE) 1 Each Capsule, 2 CAP PO DAILY, CAPSULE 03/19/16 Oxygen (OXYGEN) Inha, 2 L INH HS, L 03/19/16 Ascorbic Acid (VITAMIN C) 1,000 Mg Tablet, 1 TAB PO DAILY 03/19/16 Warfarin Sodium (WARFARIN SODIUM) 2.5 Mg Tablet, 1 TAB PO Friday @ 1:00 pm 03/19/16 Hx Smoking: Yes Smoking Status: Former Smoker Exposure to Second Hand Smoke?: Yes Hx Substance Use Disorder: No Hx Alcohol Use: No Constitutional Vital Sign - Last 24 Hours 02/17/19 02/17/19 02/17/19 02/17/19 21:05 21:15 21:15 21:30 Temp 97.6 Pulse 79 86 Resp 39 16 21 B/P (MAP) 192/105 Pulse Ox 89 65 96 O2 Delivery Nasal Cannula O2 Flow Rate 5.0 02/17/19 02/17/19 02/17/19 02/17/19 21:47 22:00 22:30 23:00 Pulse 100 94 83 Resp 27 23 13 B/P (MAP) 151/85 (107) 132/93 (106) 130/94 (106) Pulse Ox 93 91 89 Physical Exam General Appearance: The patient is alert, has no immediate need for airway protection and no signs of toxicity. Disoriented, complaining of pain, unco mfortable appearing Eyes: Pupils equal and round no pallor or injection. ENT, Mouth: Mucous membranes are moist. Respiratory: There are no retractions, lungs are clear to auscultation. Cardiovascular: Regular rate and rhythm. Gastrointestinal: Abdomen is soft and non tender, no masses, bowel sounds normal. Neurological: Neurovascular exam intact in the distal extremities, moving all distal extremities, capillary refill less than 3 seconds Skin: Warm and dry, no rashes. Musculoskeletal: Neck is supple non tender. C-collar in place Tenderness on range of motion of the left proximal hip DIFFERENTIAL DIAGNOSIS: After history and physical exam differential diagnosis was considered for fracture, contusion, intracranial bleed, rhabdomyolysis, electrolyte abnormality, acid base disturbance, dislocation Medical Decision Making Data Points Result Diagram: 02/17/19211402/17/192114 Laboratory Hematology Test 02/17/19 21:15 02/17/19 22:09 Red Blood Count 6.58 M/uL (4.00-5.60) Mean Corpuscular Volume 82.4 fL (80.0-96.0) Mean Corpuscular Hemoglobin 27.5 pg (26.0-33.0) Mean Corpuscular Hemoglobin Concent 33.4 g/dL (32.0-36.0) Red Cell Distribution Width 16.4 % (11.5-14.5) Mean Platelet Volume 9.0 fL (7.2-11.1) Neutrophils (%) (Auto) 81.7 % (39.4-72.5) Lymphocytes (%) (Auto) 2.8 % (17.6-49.6) Monocytes (%) (Auto) 15.2 % (4.1-12.4) Eosinophils (%) (Auto) 0.0 % (0.4-6.7) Basophils (%) (Auto) 0.3 % (0.3-1.4) Nucleated RBC Relative Count (auto) 0.1 /100WBC Neutrophils # (Auto) 17.3 K/uL (2.0-7.4) Lymphocytes # (Auto) 0.6 K/uL (1.3-3.6) Monocytes # (Auto) 3.2 K/uL (0.3-1.0) Eosinophils # (Auto) 0.0 K/uL (0.0-0.5) Basophils # (Auto) 0.1 K/uL (0.0-0.1) Nucleated RBC Absolute Count (auto) 0.02 K/uL Peripheral Blood Smear Yes Y/N Prothrombin Time 23.1 seconds (12.0-14.4) Prothromb Time International Ratio 2.01 Activated Partial Thromboplast Time 32 seconds (23-35) Blood Gas Patient Temperature 97.6 DEGREES Venous Blood pH 7.29 (7.31-7.41) Venous Blood Partial Pressure CO2 47 mmHg Venous Blood Partial Pressure O2 61 mmHg Venous Blood HCO3 22 mmol/L Venous Blood Oxygen Saturation 88 % Venous Blood Base Excess -4 mmol/L Oxygen Liters/Minute 6l Sodium Level 144 mmol/L (137-145) Potassium Level 4.0 mmol/L (3.5-5.0) Chloride Level 107 mmol/L (98-107) Carbon Dioxide Level 25 mmol/L (22-30) Blood Urea Nitrogen 39 mg/dl (9-21) Creatinine 1.00 mg/dl (0.66-1.25) Glomerular Filtration Rate Calc > 60.0 Random Glucose 201 mg/dl (75-110) Lactate 2.2 mmol/L (0.7-2.1) Calcium Level 8.7 mg/dl (8.4-10.2) Total Bilirubin 0.7 mg/dl (0.2-1.3) Aspartate Amino Transf (AST/SGOT) 136 U/L (0-35) Alanine Aminotransferase (ALT/SGPT) 52 U/L (0-56) Alkaline Phosphatase 91 U/L (0-126) Total Creatine Kinase 3994 U/L (55-170) Troponin I < 0.012 ng/ml B-Type Natriuretic Peptide 124 pg/ml (0-100) Total Protein 6.9 g/dl (6.3-8.2) Albumin 3.7 g/dl (3.5-5.0) Lipase 76 U/L (23-300) Serum Alcohol < 10 mg/dl Urine Color Yellow Urine Clarity Clear Urine pH 5.0 pH (4.8-9.5) Urine Specific Leola 1.032 Urine Protein 30 mg/dL (NEGATIVE) Urine Glucose (UA) 500 mg/dL (NEGATIVE) Urine Ketones Trace mg/dL (NEGATIVE) Urine Blood Large (NEGATIVE) Urine Nitrite Negative (NEGATIVE) Urine Bilirubin Negative (NEGATIVE) Urine Urobilinogen Negative mg/dL (0.2-1.9) Urine Leukocyte Esterase Negative (NEGATIVE) Urine RBC 8 /HPF (0-2/HPF) Urine WBC 3 /HPF (0-5/HPF) Urine Squamous Epithelial Cells Few /LPF (NONE-FEW) Urine Bacteria Negative /HPF (NONE-FEW) Urine Hyaline Casts Few /LPF (NONE-FEW) Urine Mucus Few /HPF (NONE-FEW) Chemistry Test 02/17/19 21:15 02/17/19 22:09 White Blood Count 21.2 k/uL (4.5-11.0) Red Blood Count 6.58 M/uL (4.00-5.60) Hemoglobin 18.1 g/dL (14.0-18.0) Hematocrit 54.2 % (42.0-52.0) Mean Corpuscular Volume 82.4 fL (80.0-96.0) Mean Corpuscular Hemoglobin 27.5 pg (26.0-33.0) Mean Corpuscular Hemoglobin Concent 33.4 g/dL (32.0-36.0) Red Cell Distribution Width 16.4 % (11.5-14.5) Platelet Count 288 K/uL (150-450) Mean Platelet Volume 9.0 fL (7.2-11.1) Neutrophils (%) (Auto) 81.7 % (39.4-72.5) Lymphocytes (%) (Auto) 2.8 % (17.6-49.6) Monocytes (%) (Auto) 15.2 % (4.1-12.4) Eosinophils (%) (Auto) 0.0 % (0.4-6.7) Basophils (%) (Auto) 0.3 % (0.3-1.4) Nucleated RBC Relative Count (auto) 0.1 /100WBC Neutrophils # (Auto) 17.3 K/uL (2.0-7.4) Lymphocytes # (Auto) 0.6 K/uL (1.3-3.6) Monocytes # (Auto) 3.2 K/uL (0.3-1.0) Eosinophils # (Auto) 0.0 K/uL (0.0-0.5) Basophils # (Auto) 0.1 K/uL (0.0-0.1) Nucleated RBC Absolute Count (auto) 0.02 K/uL Peripheral Blood Smear Yes Y/N Prothrombin Time 23.1 seconds (12.0-14.4) Prothromb Time International Ratio 2.01 Activated Partial Thromboplast Time 32 seconds (23-35) Blood Gas Patient Temperature 97.6 DEGREES Venous Blood pH 7.29 (7.31-7.41) Venous Blood Partial Pressure CO2 47 mmHg Venous Blood Partial Pressure O2 61 mmHg Venous Blood HCO3 22 mmol/L Venous Blood Oxygen Saturation 88 % Venous Blood Base Excess -4 mmol/L Oxygen Liters/Minute 6l Glomerular Filtration Rate Calc > 60.0 Lactate 2.2 mmol/L (0.7-2.1) Calcium Level 8.7 mg/dl (8.4-10.2) Total Bilirubin 0.7 mg/dl (0.2-1.3) Aspartate Amino Transf (AST/SGOT) 136 U/L (0-35) Alanine Aminotransferase (ALT/SGPT) 52 U/L (0-56) Alkaline Phosphatase 91 U/L (0-126) Total Creatine Kinase 3994 U/L (55-170) Troponin I < 0.012 ng/ml B-Type Natriuretic Peptide 124 pg/ml (0-100) Total Protein 6.9 g/dl (6.3-8.2) Albumin 3.7 g/dl (3.5-5.0) Lipase 76 U/L (23-300) Serum Alcohol < 10 mg/dl Urine Color Yellow Urine Clarity Clear Urine pH 5.0 pH (4.8-9.5) Urine Specific Leola 1.032 Urine Protein 30 mg/dL (NEGATIVE) Urine Glucose (UA) 500 mg/dL (NEGATIVE) Urine Ketones Trace mg/dL (NEGATIVE) Urine Blood Large (NEGATIVE) Urine Nitrite Negative (NEGATIVE) Urine Bilirubin Negative (NEGATIVE) Urine Urobilinogen Negative mg/dL (0.2-1.9) Urine Leukocyte Esterase Negative (NEGATIVE) Urine RBC 8 /HPF (0-2/HPF) Urine WBC 3 /HPF (0-5/HPF) Urine Squamous Epithelial Cells Few /LPF (NONE-FEW) Urine Bacteria Negative /HPF (NONE-FEW) Urine Hyaline Casts Few /LPF (NONE-FEW) Urine Mucus Few /HPF (NONE-FEW) Coagulation Test 02/17/19 21:15 Prothrombin Time 23.1 seconds Prothromb Time International Ratio 2.01 Activated Partial Thromboplast Time 32 seconds Toxicology Test 02/17/19 21:15 Serum Alcohol < 10 mg/dl Urinalysis Test 02/17/19 22:09 Urine Color Yellow Urine Clarity Clear Urine pH 5.0 pH (4.8-9.5) Urine Specific Leola 1.032 Urine Protein 30 mg/dL (NEGATIVE) Urine Glucose (UA) 500 mg/dL (NEGATIVE) Urine Ketones Trace mg/dL (NEGATIVE) Urine Blood Large (NEGATIVE) Urine Nitrite Negative (NEGATIVE) Urine Bilirubin Negative (NEGATIVE) Urine Urobilinogen Negative mg/dL (0.2-1.9) Urine Leukocyte Esterase Negative (NEGATIVE) Urine RBC 8 /HPF (0-2/HPF) Urine WBC 3 /HPF (0-5/HPF) Urine Squamous Epithelial Cells Few /LPF (NONE-FEW) Urine Bacteria Negative /HPF (NONE-FEW) Urine Hyaline Casts Few /LPF (NONE-FEW) Urine Mucus Few /HPF (NONE-FEW) EKG/Imaging Imaging PATIENT NAME: Cirilo Savage : 1955 MR: [id number] V: [id number] EXAM DATE: ORDERING PHYSICIAN: AISLINN MCCOLLUM TECHNOLOGIST: Location: [facility] [place] Patient: Cirilo Savage : 1955 Visit/Account:[id number] Date of [facility]: 02/17/2019 CT of the cervical spine without contrast: Indication: Trauma. Technique: Helical CT was performed through the cervical spine without contrast. Axial, coronal, and sagittal reconstructions are reviewed. One of the following dose optimization techniques was utilized in the performanc e of this exam: Automated exposure control; adjustment of the mA and/or kV according to the patient's size; or use of an iterative reconstruction technique. Specific details can be referenced in the facility's radiology CT exam operational policy. Comparison: None available. Findings: There is no evidence of fracture, compression, subluxation, or other acute deformity. There is minimal disc space narrowing. There is flowing anterior and posterior osteophyte formation, suggesting DISH. There is uniform mineralization. The skeletal structures are otherwise unremarkable. No paraspinal soft tissue abnormalities are identified. IMPRESSION: No evidence of fracture or acute deformity. Flowing osteophyte formation, suggesting DISH. FACILITY: PATIENT NAME: Cirilo Savage : 1955 MR: [id number] V: [id number] EXAM DATE: ORDERING PHYSICIAN: AISLINN MCCOLLUM TECHNOLOGIST: Location: [facility] [place] Patient: Cirilo Savage : 1955 Visit/Account:[id number] Date of [facility]: 02/17/2019 CT of the chest, abdomen, and pelvis with contrast: Indication: Trauma. Technique: Helical CT was performed through the chest, abdomen, and pelvis following IV contrast enhancement with 75 cc of [id number]. Multiplanar reconstructions are reviewed. One of the following dose optimization techniques was utilized in the performance of this exam: Automated exposure control; adjustment of the mA and/or kV according to the patient's size; or use of an iterative reconstruction technique. Specific details can be referenced in the facility's radiology CT exam operational policy. Comparison: 06/25/2018 Findings: Lungs: There are ill-defined parenchymal opacities in the left upper lobe and left lower lobe, suggesting contusions. Otherwise clear. Pleural spaces: There is a tiny pneumothorax at the left apex. There also appears to be a tiny pneumothorax at the right apex. There is no evidence of pl eural effusion or thickening. Mediastinum: The vascular structures appear patent and unremarkable. The heart and pericardial soft tissues are within normal limits. The left lobe of the thyroid appears slightly heterogeneous. There is diffuse thickening of the esophageal wall, suggesting esophagitis. This represents a change from the prior study. Additional clinical correlation is recommended. There are no signs of mediastinal hematoma, fluid, or air. Liver: Normal in size, shape, and density. The venous structures appear unremarkable. Gallbladder and biliary tree: The gallbladder is partially contracted, but otherwise unremarkable. The bile ducts are not dilated. Pancreas: Normal in size, shape, and density. Spleen: Normal in size, shape, and density. A tiny accessory spleen is i ncidentally noted. Adrenal glands: Within normal limits. Kidneys: Normal in size, shape, and density. There are no signs of obstruction. Intestinal structures: The stomach is dilated and filled with fluid. The duodenum and proximal jejunum are dilated with air-fluid levels. The distal small intestine and colon appear unremarkable. No obstructing process is clearly identified. The pattern suggests mild ileus. Urinary bladder: Intact and homogeneous in density. Pelvic structures: There are small uncomplicated inguinal hernias. Otherwise unremarkable. Ascites or fluid collections: None seen. Skeletal structures: There is a comminuted intratrochanteric fracture of the proximal left femur. The left femoral head is intact, and there is no evidence of dislocation. The pelvic bones are otherwise intact. There are mild degenerative changes in the right hip. There are chronic degenerative changes in the thoracic spine and lumbar spine. No additional fractures are clearly identified. IMPRESSION: Parenchymal opacities are present in the left upper lobe and left lower lobe, compatible with contusions. Tiny pneumothoraces are present at both apices. There is diffuse thickening of the esophageal wall, suggesting esophagitis. The abdominal visceral structures appear intact and unremarkable. There are no signs of intraperitoneal fluid. There is dilatation of the stomach and proximal small intestine, without obvious obstructing process, suggesting mild ileus. There is a comminuted intratrochanteric fracture of the proximal left femur. PATIENT NAME: Cirilo Savage : 1955 MR: [id number] V: [id number] EXAM DATE: ORDERING PHYSICIAN: AISLINN MCCOLLUM TECHNOLOGIST: Location: [facility] [place] Patient: Cirilo Savage : 1955 Visit/Account:[id number] Date of Sevice: 02/17/[address]: Indication: Injury. Technique: Contiguous axial sections were obtained from the base to the vertex without contrast enhancement. One of the following dose optimization techniques was utilized in the performance of this exam: Automated exposure control; adjustment of the mA and/or kV according to the patient's size; or use of an iterative reconstruction technique. Specific details can be referenced in the facility's radiology CT exam operational policy. Comparison: None available. Findings: There is no evidence of intra-axial or extra-axial hemorrhage. There is mild cortical atrophy. No focal areas of decreased or increased attenuation are identified. There is no evidence of mass, edema, or shift of the midline structures. The size, shape, and configuration of the ventricular system are normal. The skeletal structures are intact and unremarkable. There is no evidence of fracture or other acute deformity. The visualized paranasal sinuses and mastoid air cells are clear. Impression: Mild atrophy. No acute deformity. PATIENT NAME: Cirilo Savage : 1955 MR: [id number] V: [id number] EXAM DATE: ORDERING PHYSICIAN: AISLINN MCCOLLUM TECHNOLOGIST: Location: [facility] [place] Patient: Cirilo Savage : 1955 Visit/Account:[id number] Date of : 02/17/2019 INDICATION: fall. DATE: 02/17/2019 9:51 PM. TECHNIQUE: Frontal view of the pelvis COMPARISON: None FINDINGS: The pelvic ring appears grossly intact. There is a comminuted intertrochanteric fracture of the left femur. The sacrum is obscured by bowel g as. There may be a left inferior pubic ramus fracture. IMPRESSION: 1. Comminuted intertrochanteric fracture of the left femur. 2. Possible left inferior pubic ramus fracture. ED Course/Re-evaluation ED Course Patient is a 63-year-old male here with complaints of left hip pain, found down for approximately 2 days by home health nurse, dehydration, neurovascular exam intact in distal extremity with good capillary refill less than 3 seconds in the lower extremities. Patient was identified to have an intertrochanteric left hip fracture. I discussed the patient with Dr. Webb with orthopedics who recommended admission to internal medicine for optimization. CT imaging of the head, C-spine, chest abdomen pelvis was significant for time the apices or pneumothoraces, ileus, esophagitis. Decision to Disposition Date: Feb 17, 2019 Decision to Disposition Time: 23:12 Depart Departure Latest Vital Signs Vital Signs Date Time Temp Pulse Resp B/P (MAP) Pulse Ox O2 Delivery O2 Flow Rate FiO2 02/17/19 23:00 83 13 89 02/17/19 22:30 130/94 (106) 02/17/19 21:15 5.0 02/17/19 21:15 97.6 Nasal Cannula Impression: Primary Impression: Hip fracture Additional Impressions: Pneumothorax Ileus Condition: Improved Disposition: Admitted from ER Referrals: TARA MONTANA PA-C (PCP) Problem Qualifiers AISLINN MCCOLLUM DO Feb 17, 2019 21:39
--- NOTE | 2019-02-17 21:57 | RADIOLOGY IMAGING REPORT ---
FACILITY: [facility] - [place] PATIENT NAME: Cirilo Savage : 1955 MR: [id number] V: [id number] EXAM DATE: ORDERING PHYSICIAN: AISLINN MCCOLLUM TECHNOLOGIST: Location: [facility] Patient: Cirilo Savage : 1955 Visit/Account:[id number] Date of Sev[facility]: 02/17/2019 INDICATION: fall. DATE: 02/17/2019 9:51 PM. TECHNIQUE: Frontal view of the pelvis COMPARISON: None FINDINGS: The pelvic ring appears grossly intact. There is a comminuted intertrochanteric fracture o f the left femur. The sacrum is obscured by bowel gas. There may be a left inferior pubic ramus fra cture. IMPRESSION: 1. Comminuted intertrochanteric fracture of the left femur. 2. Possible left inferior pubic ramus fracture. Report Dictated By: Steven Malin MD at 02/17/2019 9:51 PM Report E-Signed By: Steven Malin MD at 02/17/2019 9:52 PM WSN:[id number]
--- NOTE | 2019-02-17 22:19 | RADIOLOGY IMAGING REPORT ---
FACILITY: [facility] - [place], [place] PATIENT NAME: Cirilo Savage : 1955 MR: [id number] V: [id number] EXAM DATE: ORDERING PHYSICIAN: AISLINN MCCOLLUM TECHNOLOGIST: Location: [facility] [place] Patient: Cirilo Savage : 1955 Visit/Account:[id number] Date of Sevice: 02/17/[address]: Indication: Injury. Technique: Contiguous axial sections were obtained from the base to the vertex without contrast enhan cement. One of the following dose optimization techniques was utilized in the performance of this exam: Autom ated exposure control; adjustment of the mA and/or kV according to the patient's size; or use of an i terative reconstruction technique. Specific details can be referenced in the facility's radiology CT exam operational policy. Comparison: None available. Findings: There is no evidence of intra-axial or extra-axial hemorrhage. There is mild cortical atrop hy. No focal areas of decreased or increased attenuation are identified. There is no evidence of mass , edema, or shift of the midline structures. The size, shape, and configuration of the ventricular sy stem are normal. The skeletal structures are intact and unremarkable. There is no evidence of fractur e or other acute deformity. The visualized paranasal sinuses and mastoid air cells are clear. Impression: Mild atrophy. No acute deformity. Report Dictated By: Felipe Pierre MD at 02/17/2019 10:12 PM Report E-Signed By: Felipe Pierre MD at 02/17/2019 10:15 PM WSN:[id number]
[2019-02-17] MEDS ORDERED: LABETALOL HCL 100 MG/20ML VIAL IVP ONE (22:40)
--- NOTE | 2019-02-17 22:45 | RADIOLOGY IMAGING REPORT ---
FACILITY: [facility] - [place] PATIENT NAME: Cirilo Savage : 1955 MR: [id number] V: [id number] EXAM DATE: ORDERING PHYSICIAN: AISLINN MCCOLLUM TECHNOLOGIST: Location: [facility] - [place] Patient: Cirilo Savage : 1955 Visit/Account:[id number] Date of Sevice: 02/17/2019 CT of the chest, abdomen, and pelvis with contrast: Indication: Trauma. Technique: Helical CT was performed through the chest, abdomen, and pelvis following IV contrast enha ncement with 75 cc of [id number]. Multiplanar reconstructions are reviewed. One of the following dose optimization techniques was utilized in the performance of this exam: Autom ated exposure control; adjustment of the mA and/or kV according to the patient's size; or use of an i terative reconstruction technique. Specific details can be referenced in the facility's radiology CT exam operational policy. Comparison: 06/25/2018 Findings: Lungs: There are ill-defined parenchymal opacities in the left upper lobe and left lower lobe, sugges ting contusions. Otherwise clear. Pleural spaces: There is a tiny pneumothorax at the left apex. There also appears to be a tiny pneumo thorax at the right apex. There is no evidence of pleural effusion or thickening. Mediastinum: The vascular structures appear patent and unremarkable. The heart and pericardial soft t issues are within normal limits. The left lobe of the thyroid appears slightly heterogeneous. There i s diffuse thickening of the esophageal wall, suggesting esophagitis. This represents a change from th e prior study. Additional clinical correlation is recommended. There are no signs of mediastinal silvina lashanda, fluid, or air. Liver: Normal in size, shape, and density. The venous structures appear unremarkable. Gallbladder and biliary tree: The gallbladder is partially contracted, but otherwise unremarkable. Th e bile ducts are not dilated. Pancreas: Normal in size, shape, and density. Spleen: Normal in size, shape, and density. A tiny accessory spleen is incidentally noted. Adrenal glands: Within normal limits. Kidneys: Normal in size, shape, and density. There are no signs of obstruction. Intestinal structures: The stomach is dilated and filled with fluid. The duodenum and proximal jejunu m are dilated with air-fluid levels. The distal small intestine and colon appear unremarkable. No obs tructing process is clearly identified. The pattern suggests mild ileus. Urinary bladder: Intact and homogeneous in density. Pelvic structures: There are small uncomplicated inguinal hernias. Otherwise unremarkable. Ascites or fluid collections: None seen. Skeletal structures: There is a comminuted intratrochanteric fracture of the proximal left femur. The left femoral head is intact, and there is no evidence of dislocation. The pelvic bones are otherwise intact. There are mild degenerative changes in the right hip. There are chronic degenerative changes in the thoracic spine and lumbar spine. No additional fractures are clearly identified. IMPRESSION: Parenchymal opacities are present in the left upper lobe and left lower lobe, compatible with contusions. Tiny pneumothoraces are present at both apices. There is diffuse thickening of the e sophageal wall, suggesting esophagitis. The abdominal visceral structures appear intact and unremarkable. There are no signs of intraperitone al fluid. There is dilatation of the stomach and proximal small intestine, without obvious obstructin g process, suggesting mild ileus. There is a comminuted intratrochanteric fracture of the proximal left femur. Report Dictated By: Felipe Pierre MD at 02/17/2019 10:15 PM Report E-Signed By: Felipe Pierre MD at 02/17/2019 10:41 PM WSN:[id number]
--- NOTE | 2019-02-17 22:53 | RADIOLOGY IMAGING REPORT ---
[place] [facility] [place] NAME: Cirilo Savage : 1955 MR: [id number] V: [id number] EXAM DATE: ORDERING PHYSICIAN: AISLINN MCCOLLUM TECHNOLOGIST: Location: [facility] Patient: Cirilo Savage : 1955 Visit/Account:[id number] Date of Sevice: 02/17/2019 CT of the cervical spine without contrast: Indication: Trauma. Technique: Helical CT was performed through the cervical spine without contrast. Axial, coronal, and sagittal reconstructions are reviewed. One of the following dose optimization techniques was utilized in the performance of this exam: Autom ated exposure control; adjustment of the mA and/or kV according to the patient's size; or use of an i terative reconstruction technique. Specific details can be referenced in the facility's radiology CT exam operational policy. Comparison: None available. Findings: There is no evidence of fracture, compression, subluxation, or other acute deformity. There is minimal disc space narrowing. There is flowing anterior and posterior osteophyte formation, sugge sting DISH. There is uniform mineralization. The skeletal structures are otherwise unremarkable. No p araspinal soft tissue abnormalities are identified. IMPRESSION: No evidence of fracture or acute deformity. Flowing osteophyte formation, suggesting DISH . Report Dictated By: Felipe Pierre MD at 02/17/2019 10:41 PM Report E-Signed By: Felipe Pierre MD at 02/17/2019 10:50 PM WSN:[id number]
--- NOTE | 2019-02-17 23:08 | EKG ---
[place] [facility] [place] NAME: NIKOLAY RODRIGUEZ : [id number] MR: [id number] V: [id number] EXAM DATE: ORDERING PHYSICIAN: AISLINN MCCOLLUM TECHNOLOGIST: KEYLA Patel Reason : TRAUMA Blood Pressure : / mmHG Vent. Rate : 096 BPM Atrial Rate : 096 BPM P-R Int : 166 ms QRS Dur : 088 ms QT Int : 530 ms P-R-T Axes : 080 -53 070 degrees QTc Int : 669 ms Normal sinus rhythm Left axis deviation Nonspecific T wave abnormality Prolonged QT Abnormal ECG When compared with ECG of 16-JUN-2013 16:07, QRS axis shifted left Nonspecific T wave abnormality now evident in Anterolateral leads QT has lengthened Confirmed by Travis Garcia ([id number]) on 02/18/2019 1:14:01 AM Referred By: Confirmed By:Travis Varma
[2019-02-17] MEDS ORDERED: fentaNYL CITR 100 MCG/2 ML AMP IVP ONE (23:25)
[2019-02-18] VITALS (7 sets, daily range): BP systolic 93–146; BP diastolic 54–88
--- NOTE | 2019-02-18 00:51 | NUR ---
pt. currently NPO, unable to take po Addendum: 02/18/19 at 0101 by EFRAIN ADAMS RN Amended: Links added.
--- NOTE | 2019-02-18 00:58 | History & Physical ---
History of Present Illness Chief Complaint L hip pain History of Present Illness 63M presented with 2 day history L hip pain. PMHx significant for DM, CAD, COPD, polycythemia, HTN, on chronic anticoagulation. Found on floor unable to get up by home health nurse. In ER he denies hitting head, got up when heard sound and stumbled twisting leg. Remained on floor for nearly 2 days. In er CPK is elevated near 4000, CT showed hip Fx, esophagitis, lung contusion, possible small apical pneumothorax. Ortho consulted who request admission for medical optimization before surgical repair. Patient is unable to provide history other than that given in ER 2/2 sedation from fentanyl given there. History Unable To Obtain Past Medical: Unable to Obtain/Update Problems: (1) Chronic anticoagulation Status: Chronic (2) Polycythemia Status: Chronic (3) Severe chronic obstructive pulmonary disease Status: Chronic Home Meds Active Scripts Hydrocodone Bit/Acetaminophen (HYDROCODON-ACETAMINOPHEN 5-325) 1 Each Tablet, 1 EACH PO Q4-6H PRN for PAIN, #12 TAKE ONE TABLET BY MOUTH EVERY 4-6 HOURS NEEDED FOR PAIN Prov:JUAN MIGUEL NEWELL DO 08/31/18 Dapagliflozin Propanediol (Farxiga) 10 Mg Tablet, 1 TAB PO DAILY, #30 TAB 11 Refills Prov:CHERI MALCOLM MD 08/28/16 Omeprazole (OMEPRAZOLE) 40 Mg Capsule.dr, 1 CAP PO BID, #180 CAP 2 Refills Prov:CHERI MALCOLM MD 06/17/16 Reported Medications Verapamil Hcl (VERAPAMIL ER) 240 Mg Tablet.er, 240 MG PO QDAY 08/31/18 Topiramate (TOPAMAX) 100 Mg Tablet, 120 MG PO QDAY 08/31/18 Insulin Glargine (LANTUS) 100 Unit/Ml Soln, 52 UNIT SUBQ HS, ML 08/31/18 Nebivolol Hcl (BYSTOLIC) 10 Mg Tab, 10 MG PO BID, TAB 08/31/18 Acetaminophen (TYLENOL) 325 Mg Tablet, 650 MG PO Q6H PRN for PAIN, TAB 11/21/17 Warfarin Sodium (WARFARIN SODIUM) 5 Mg Tablet, 5 MG PO QDAY, TAB 5 MG ON , , , , SA @ 1:00PM 11/21/17 Cholecalciferol (Vitamin D3) (VITAMIN D3) 1,000 Unit Tablet, 2000 UNIT PO QDAY, TAB 11/20/17 Lisinopril (LISINOPRIL) 20 Mg Tablet, 20 MG PO QDAY, TAB 11/20/17 Furosemide (FUROSEMIDE) 20 Mg Tablet, 1 TAB PO QDAY, TAB 11/20/17 Cyclobenzaprine Hcl (CYCLOBENZAPRINE HCL) 10 Mg Tablet, 10 MG PO QHS, #9 TAB 11/19/17 Aripiprazole (ABILIFY) 5 Mg Tablet, 5 MG PO QHS, #10 TAB 11/19/17 Dulaglutide (Trulicity) 1.5 Mg/0.5 Ml Pen.injctr, 1.5 MG SQ QWK EACH Friday11/19/17 Nut.tx.gluc.intoler,Lac-Fr,Soy (Glucerna) 237 Ml Liquid, BID 11/19/17 Mirtazapine (MIRTAZAPINE) 45 Mg Tab.rapdis, 45 MG PO QHS 11/19/17 Oxcarbazepine (TRILEPTAL) 600 Mg Tablet, 600 MG PO TID 09/18/17 Montelukast Sodium (SINGULAIR) 10 Mg Tablet, 1 TAB PO QDAY, TAB 09/18/17 Duloxetine HCl (Duloxetine HCl) 60 Mg Capsule.dr, 60 MG PO BID TAKE AT 8:00 AM AND 2:00 PM 09/18/17 Rosuvastatin Calcium (CRESTOR) 20 Mg Tablet, 20 MG PO QHS 01/28/17 Multivitamin (MULTI VITAMIN DAILY) 1 Each Tablet, 1 TAB PO DAILY 03/19/16 [place]-3 Fatty Acids/Fish Oil (FISH OIL 1,000 MG CAPSULE) 1 Each Capsule, 2 CAP PO DAILY, CAPSULE 03/19/16 Oxygen (OXYGEN) Inha, 2 L INH HS, L 03/19/16 Ascorbic Acid (VITAMIN C) 1,000 Mg Tablet, 1 TAB PO DAILY 03/19/16 Warfarin Sodium (WARFARIN SODIUM) 2.5 Mg Tablet, 1 TAB PO Friday @ 1:00 pm 03/19/16 Allergies: Coded Allergies: atorvastatin (Verified Adverse Reaction, Intermediate, Myalgia, 08/31/18) Patient History: FH: cancer BROTHER OR SISTER FH: diabetes mellitus BROTHER OR SISTER FH: pulmonary embolism MOTHER, , Age:43 FHx: heart disease BROTHER OR SISTER Hx Smoking: Yes Smoking Status: Former Smoker Exposure to Second Hand Smoke?: Yes Caffeine Intake: Soda Caffeine/Cups Per Day: 6 packs a day Hx Alcohol Use: No Hx Substance Use Disorder: No Social Drug Use: Never Review of Systems Other unable to obtain reliably Exam Vital Signs Vital Signs Date Time Temp Pulse Resp B/P (MAP) Pulse Ox O2 Delivery O2 Flow Rate FiO2 02/18/19 00:32 93 Nasal Cannula 2.0 02/18/19 00:00 98.5 100 20 142/81 (101) General Appearance: No Acute Distress, Afebrile Neuro: No Gross deficits Cardiovascular: Normal Rhythm & Peripheral Pulses Respiratory: Other (crackles b/l, wheezing) GI: Abd Soft and Non-Tender Extremities: Soft and Non Tender, Pulses Medical Decision Making Data Points Result Diagram: 02/17/19211402/17/192114 Assessment and Plan Problems: (1) Hip fracture Status: Acute Assessment & Plan: No dynamic changes on EKG, CT without acute changes. He is requiring 5L via NC, reported history of COPD, CAD. Patient unable to participate in evaluating surgical risk. Will wait until he is able to participate in evaluation. (2) Chronic anticoagulation Status: Chronic Assessment & Plan: INR 2.0, hold warfarin in anticipation of surgical intervention. (3) Polycythemia Status: Chronic Assessment & Plan: Per review secondary, likely due to hypoxia. Follows with heme/onc. (4) Hypertension Status: Chronic Assessment & Plan: Per review, unable to verify any medications at the current time. Venous Thromboembolism Antithrombotics Is Pt On Any Antithrombotics?: No Prophylaxis Tx Contraindicated Pharmacological Contraindicati: Surgical Contraindication Exam Sepsis Risk: No Definite Risk ANAHY LEMA DO Feb 18, 2019 00:58
[2019-02-18] MEDS ORDERED: FLUSH 10 ML SYR IVP PRN (01:00)
[2019-02-18] MEDS: NS(*) 0.9% 1000 ML BAG 1,000 ML IV PRN ×2 (02:58→12:56)
[2019-02-18 06:12] LABS: PLATELET COUNT, AUTOMATED 226 K/uL (150-450)
[2019-02-18] MEDS: ACETAMINOPHEN 500 MG TAB PO PRN ×3 (07:59→22:22)
--- NOTE | 2019-02-18 09:34 | RADIOLOGY IMAGING REPORT ---
FACILITY: [facility] - [place] PATIENT NAME: Cirilo Savage : 1955 MR: [id number] V: [id number] EXAM DATE: ORDERING PHYSICIAN: KAYLA ROQUE TECHNOLOGIST: [facility] Patient: Cirilo Savage : 1955 Visit/Account:[id number] Date of Sevice: 02/18/2019 CHEST SINGLE AP INDICATION: hypoxia COMPARISON: 05/27/2018 FINDINGS: Heart size within normal limits. There is atelectasis versus infiltrate present involving the left lower lobe. The remainder the lung s are clear. There is possible trace pleural effusion involving the left pleural space IMPRESSION: 1. Left lower lobe atelectasis versus infiltrate with trace pleural effusion Report Dictated By: Tyrone Gant at 02/18/2019 9:28 AM Report E-Signed By: Tyrone Gant at 02/18/2019 9:29 AM WSN:[id number]
[2019-02-18] MEDS: AMPICILLIN/SULBACT (*) 3 GM VL 3 GM in NS(*) 0.9% 100 ML MINI-BAG 100 ML IVPB SCH ×3 (10:17→20:54)
[2019-02-18] MEDS: DULoxetine HCL 30 MG CAPCR PO SCH ×2 (12:55→20:58)
[2019-02-18] MEDS: ARIPiprazole 10 MG TAB PO SCH (12:55)
[2019-02-18] MEDS: NEBIVOLOL HCL 5 MG TAB PO SCH ×2 (12:55→20:58)
[2019-02-18] MEDS: TOPIRAMATE 100 MG TAB PO SCH (12:56)
[2019-02-18] MEDS: OXcarbazepine 300 MG TAB PO SCH ×3 (12:56→20:57)
--- NOTE | 2019-02-18 13:06 | Hospitalist Progress Note ---
Subjective Progress Notes Subjective He complains of pain in left hip area. No CP. Mild dyspnea. No fever. Physical Exam Vital Signs Date Time Temp Pulse Resp B/P (MAP) Pulse Ox O2 Delivery O2 Flow Rate FiO2 02/18/19 08:00 94 Nasal Cannula 2.0 02/18/19 07:06 97.8 99 20 127/74 (91) Intake and Output 02/18/19 07:00 Intake Total 1000 ml Output Total 825 ml Balance 175 ml IV Total 1000 ml Output Urine Total 825 ml General Appearance: Alert, Awake, Other (significant tremor especially with intention) Neuro: Other (no focal motor deficits noted) Cardiovascular: Regular Rate and Rhythm Respiratory: Other (few rales at left base) GI: Soft and Non-Tender Extremities: Warm, Perfused Integumentary: Other (some mild chronic venous stasis findings both LE) Result Diagram: 02/18/19 0544 02/18/1930 Item Value Date Time Albumin 3.1 g/dl L 02/18/1930 Total Protein 6.1 g/dl L 02/18/19 0630 Total Creatine Kinase 2627 U/L H 02/18/19 0630 Alkaline Phosphatase 69 U/L 02/18/19 0630 Alanine Aminotransferase (ALT/SGPT) 48 U/L 02/18/19 0630 Aspartate Amino Transf (AST/SGOT) 125 U/L H 02/18/19 0630 Total Bilirubin 0.7 mg/dl 02/18/1930 Calcium Level 8.4 mg/dl 02/18/19 0630 Urine Mucus Few /HPF 02/17/19 2209 Urine Hyaline Casts Few /LPF 02/17/192208 Urine Bacteria Negative /HPF 02/17/199 Urine Squamous Epithelial Cells Few /LPF 02/17/192208 Urine WBC 3 /HPF 02/17/192208 Urine RBC 8 /HPF 02/17/192208 Urine Leukocyte Esterase Negative 02/17/192208 Urine Urobilinogen Negative mg/dL 02/17/192208 Urine Bilirubin Negative 02/17/192208 Urine Nitrite Negative 02/17/192208 Urine Blood Large 02/17/192208 Urine Ketones Trace mg/dL 02/17/192208 Urine Glucose (UA) 500 mg/dL 02/17/192208 Urine Protein 30 mg/dL 02/17/192208 Urine Specific [place] 1.032 02/17/192208 Urine pH 5.0 pH 02/17/192208 Urine Clarity Clear 02/17/192208 Urine Color Yellow 02/17/192208 Assessment and Plan Problems: (1) Aspiration pneumonia Status: Acute Assessment & Plan: It appears he probably has an aspiration pneumonia in left lung base. He reports vomiting "at least twice" while he was on the floor at home. Will place on IV Unasyn. Continue supplemental oxygen. CT scan noted possible contusion, but this is probably an aspiration event. (2) Rhabdomyolysis Status: Acute Assessment & Plan: Due to >24 hours on floor after fall. He did have positive blood on dipstick UA without significant hematuria. He most likely has some myoglobinuria. Will continue IV fluids. Watch labs. (3) Hip fracture Status: Acute Assessment & Plan: At this point he would not be a very good candidate for surgery/anesthesia. Would like to get him started on IV antibiotics for his probable aspiration pneumonia. Would also like to make sure his rhabdomyolysis/myoglobinuria improve/resolve. Will also need to be sure protime/INR is down to near normal range prior to surgery. If status shows improvement, he could be ready for surgery in next day or two. (4) Chronic anticoagulation Status: Chronic Assessment & Plan: He has been on this for a history of DVT. His INR was 2.0 at time of admission. Continue to hold warfarin in anticipation of surgical intervention. Watch INR. (5) Polycythemia Status: Chronic Assessment & Plan: Secondary. Likely due to COPD/chronic hypoxia. He has been following with hematology/oncology. (6) Hypertension Status: Chronic Assessment & Plan: BPs have been acceptable off his usual medications. Will resume his Bystolic with hold parameters. Will hold his lisinopril. (7) Type 2 diabetes mellitus Status: Chronic Assessment & Plan: Will have him on ADA diet, low dose Lantus 10 units SQ qHS, and SSI as needed during perioperative period. Monitor glucoses AC and HS. Exam Sepsis Risk: Sepsis Risk KAYLA ROQUE MD Feb 18, 2019 13:06
--- NOTE | 2019-02-18 13:44 | Medical Nutrition Therapy ---
Nutrition Anthropometrics Height (Inches): 68.00 Height (Calculated Centimeters: 172.296702 Weight (Pounds): 209 Weight (Calculated Kilograms): 94.801 BMI: 31.8 Thuan Nutrition Score: Adequate Thuan Nutrition Risk Score: 16 Dietary Referral Nutrition Risk Factors: Nutrition Risk Comment: Physical Findings Physical Appearance: Obese BMI 30-39 Skin Appearance Skin Appearance: Edema Edema Location Modifier: Left Edema Location: Leg Type of Edema: Degree of Edema: Gastrointestinal Symptoms GI Symtoms: WNL Tube Present: Bowel Sounds: Recent Bowel Pattern: Stool Characteristics: Nutrition/Food History Good Lunch: Half of meals on wheels entree Dinner: Other half of meals on wheels entree Nutritional Diagnosis Nutritional Risk Acuity 3: COPD Unstable Nutritional Risk Acuity 4: Good Appetite Past Medical History: DM, COPD,HTN Nutritional Acuity: 3-Mild Energy Requirement: 2249 (MSJ) Protein Requirement: 94 (1g/kg) Fluid Requirement: 2249 (1mL/kcal) Diet Type: NPO (Nothing by Mouth) (For surgery ), Diet as Tolerated BRI/REG Drug: Diuretics, Warfarin Drug/Nutrition Recommendations: Check Serum K+ Do Not Serve Any of the Follow: Broccoli, Brussel Sprouts, Spinach, [place] Lettuce Nutrition Monitoring & Eval Nutrition Goals: Eat 50-100% Meal Nutrition Follow-Up: Good Intake RD Patient Assessment Time: [address] Assessment Type: RD Assessment Patient Nutrition Acuity: 3-Mild Follow Up Date: Feb 23, 2019 Nutritional Comment: 02/18/2019Reviewed charting. Pertinent medical hx includes DM,COPD and HTN. Recommended high protein for hip fracture healing. RD will continue to monitor and provide education as needed.MATILDE TEJEDA Feb 18, 2019 13:41
[2019-02-18] MEDS ORDERED: VERA360C6 PO (20:15)
[2019-02-18] MEDS ORDERED: LURA60TA PO (20:15)
[2019-02-18] MEDS ORDERED: VENL150T10 PO (20:15)
[2019-02-18] MEDS ORDERED: DEUT6TAB PO (20:15)
[2019-02-18] MEDS ORDERED: LISI-362 PO (20:15)
[2019-02-18] MEDS ORDERED: MORPHINE 50 MG/50 ML PCA BAG IV PRN (20:20)
[2019-02-18] MEDS ORDERED: PCA LOCKBOX KEYS XX PRN (20:25)
[2019-02-18] MEDS: MIRTAZAPINE PO SCH (20:57)
[2019-02-18] MEDS: INSULIN GLARGINE 100 U/ML 3 ML PEN SUBQ SCH (20:58)
[2019-02-18] MEDS ORDERED: INSULIN GLARGINE 100 U/ML 3 ML PEN SUBQ SCH (21:00)
[2019-02-18] MEDS ORDERED: MIRTAZAPINE 15 MG TAB PO SCH (21:00)
[2019-02-18] MEDS: PANTOPRAZOLE SOD 40 MG TABEC PO SCH (22:22)
[2019-02-19] MEDS: NS(*) 0.9% 1000 ML BAG 1,000 ML IV PRN ×2 (01:11→13:13)
[2019-02-19] MEDS: AMPICILLIN/SULBACT (*) 3 GM VL 3 GM in NS(*) 0.9% 100 ML MINI-BAG 100 ML IVPB SCH ×4 (02:59→20:56)
[2019-02-19] MEDS: ACETAMINOPHEN(*)1000 MG/100 ML 100 ML IVPB PRN ×3 (04:17→20:57)
[2019-02-19 06:40] LABS: PLATELET COUNT, AUTOMATED 188 K/uL (150-450)
[2019-02-19 07:15] LABS: INR 1.33
[2019-02-19 07:19] VITALS: BP 121/81
[2019-02-19] MEDS: ALBUTEROL/IPRATROPIUM 3 ML NEB NEB SCH ×3 (08:17→17:39)
[2019-02-19] MEDS: NEBIVOLOL HCL 5 MG TAB PO SCH ×3 (08:43→20:57)
[2019-02-19] MEDS: DULoxetine HCL 30 MG CAPCR PO SCH ×2 (08:44→20:57)
[2019-02-19] MEDS: ARIPiprazole 10 MG TAB PO SCH (08:44)
[2019-02-19] MEDS: PANTOPRAZOLE SOD 40 MG TABEC PO SCH ×2 (08:44→20:57)
[2019-02-19] MEDS: TOPIRAMATE 100 MG TAB PO SCH (08:45)
[2019-02-19] MEDS: OXcarbazepine 300 MG TAB PO SCH ×3 (08:45→20:57)
--- NOTE | 2019-02-19 09:11 | Hospitalist Progress Note ---
Subjective Progress Notes Subjective He was admitted with hip fracture. He has complaints of SOB and cough. Patient Complains of: Cardiovascular: No: Chest Pain Respiratory: Cough, Shortness of Breath Physical Exam Vital Signs Date Time Temp Pulse Resp B/P (MAP) Pulse Ox O2 Delivery O2 Flow Rate FiO2 02/19/19 08:15 95 Nasal Cannula 2.0 02/19/19 08:15 94 18 02/19/19 07:19 97.6 121/81 (94) Intake and Output 02/19/19 07:00 Intake Total 2665 ml Output Total 1850 ml Balance 815 ml Intake Oral 1560 ml IV Total 1105 ml Output Urine Total 1850 ml # Bowel Movements 2 General Appearance: Alert, Awake, No Acute Distress, Afebrile Neuro: No Gross deficits Cardiovascular: Regular Rate and Rhythm Respiratory: No Respiratory Distress, Other (wet, coarse lung sounds to bilateral upper lobes, right lower lobe rhonci present) GI: Soft and Non-Tender Extremities: Warm, Perfused; No Edema Psych: Alert & Oriented X3, Appropriate Mood & Affect Result Diagram: 02/19/1963002/19/19630 Assessment and Plan Problems: (1) Aspiration pneumonia Status: Acute Assessment & Plan: It appears he probably has an aspiration pneumonia in left lung base. He reports vomiting "at least twice" while he was on the floor at home. Will place on IV Unasyn. Continue supplemental oxygen. CT scan noted possible contusion, but this is probably an aspiration event. Will add scheduled nebulizers and flutter therapy today to help with lung sounds. (2) Rhabdomyolysis Status: Acute Assessment & Plan: Due to >24 hours on floor after fall. He did have positive blood on dipstick UA without significant hematuria. He most likely has some myoglobinuria. Will continue IV fluids. Watch labs. (3) Hip fracture Status: Acute Assessment & Plan: At this point he would not be a very good candidate for surgery/anesthesia. Would like to get him started on IV antibiotics for his probable aspiration pneumonia. Would also like to make sure his rhabdom yolysis/myoglobinuria improve/resolve. Will also need to be sure protime/INR is down to near normal range prior to surgery. If status shows improvement, he could be ready for surgery in next day or two. (4) Chronic anticoagulation Status: Chronic Assessment & Plan: He has been on this for a history of DVT. His INR was 2.0 at time of admission. Continue to hold warfarin in anticipation of surgical intervention. Watch INR. (5) Polycythemia Status: Chronic Assessment & Plan: Secondary. Likely due to COPD/chronic hypoxia. He has been following with hematology/oncology. (6) Hypertension Status: Chronic Assessment & Plan: BPs have been acceptable off his usual medications. Will resume his Bystolic with hold parameters. Will hold his lisinopril. (7) Type 2 diabetes mellitus Status: Chronic Assessment & Plan: Will have him on ADA diet, low dose Lantus 10 units SQ qHS, and SSI as needed during perioperative period. Monitor glucoses AC and HS. Exam Sepsis Risk: Sepsis Risk CHELLY SMITH Feb 19, 2019 09:11
[2019-02-19 11:28] VITALS: BP 113/70
--- NOTE | 2019-02-19 17:07 | Antimicrobial Stewardship ---
Antimicrobial Time Out Antimicrobial Stewardship MD Service: Hospitalist Indications: Other (Aspiration pneumonia) Antimicrobial Used Unasyn Start Date: Feb 18, 2019 Culture Results: N/A Eligible for PO Conversion Eligable for PO Conversion: No Comments Comments Treat for 7-10 days.. MIKAYLA DELAROSA Feb 19, 2019 17:07
[2019-02-19 18:55] VITALS: BP 123/91
[2019-02-19] MEDS: MIRTAZAPINE PO SCH (20:57)
[2019-02-19] MEDS: INSULIN GLARGINE 100 U/ML 3 ML PEN SUBQ SCH (20:58)
[2019-02-19 22:52] VITALS: BP 128/77
[2019-02-20] MEDS: AMPICILLIN/SULBACT (*) 3 GM VL 3 GM in NS(*) 0.9% 100 ML MINI-BAG 100 ML IVPB SCH ×4 (02:32→21:03)
[2019-02-20] MEDS ORDERED: NORMOSOL R SOLN(*) 1000 ML BAG 1,000 ML IV ONE (05:50)
[2019-02-20 05:59] LABS: PLATELET COUNT, AUTOMATED 234 K/uL (150-450)
[2019-02-20 06:10] LABS: INR 1.14
[2019-02-20] MEDS: ALBUTEROL/IPRATROPIUM 3 ML NEB NEB SCH ×4 (06:10→18:10)
[2019-02-20] MEDS: PANTOPRAZOLE SOD 40 MG TABEC PO SCH (07:04)
[2019-02-20] MEDS: NS(*) 0.9% 1000 ML BAG 1,000 ML IV PRN ×2 (07:04→19:41)
[2019-02-20] MEDS ORDERED: BENZ1 PO (07:36)
[2019-02-20] MEDS ORDERED: WARF5TAB23 PO (07:36)
[2019-02-20] MEDS ORDERED: DAPA10TA PO (07:36)
[2019-02-20] MEDS ORDERED: METH5TAB87 PO (07:36)
[2019-02-20] MEDS ORDERED: NEBI5TAB PO (07:36)
[2019-02-20] MEDS ORDERED: TOPI50TA92 PO (07:36)
[2019-02-20 07:53] VITALS: BP 123/86
[2019-02-20] MEDS ORDERED: ENOXAPARIN 40 MG/0.4ML SYR SC ONE (08:35)
--- NOTE | 2019-02-20 08:45 | EKG ---
FACILITY: [facility] - [place] PATIENT NAME: NIKOLAY RODRIGUEZ : [id number] MR: [id number] V: [id number] EXAM DATE: ORDERING PHYSICIAN: MIKAYLA ROQUE TECHNOLOGIST: SHAWNA Test Reason : PROLONGED QT-pre op Blood Pressure : / mmHG Vent. Rate : 109 BPM Atrial Rate : 468 BPM P-R Int : 000 ms QRS Dur : 078 ms QT Int : 340 ms P-R-T Axes : 000 -39 -46 degrees QTc Int : 457 ms Atrial fibrillation with rapid ventricular response Pulmonary disease pattern Nonspecific T wave abnormality Abnormal ECG When compared with ECG of 20-FEB-2019 08:10, No significant change was found Confirmed by MIKAYLA REYNOSO ([id number]) on 02/20/2019 6:53:09 PM Referred By: JUDE Confirmed By:MIKAYLA REYNOSO
[2019-02-20] MEDS: TOPIRAMATE 100 MG TAB PO SCH (09:00)
[2019-02-20] MEDS: NEBIVOLOL HCL 5 MG TAB PO SCH ×2 (09:00→21:03)
[2019-02-20] MEDS: OXcarbazepine 300 MG TAB PO SCH ×3 (09:00→21:04)
[2019-02-20] MEDS: DULoxetine HCL 30 MG CAPCR PO SCH ×2 (09:00→21:03)
[2019-02-20] MEDS: ARIPiprazole 10 MG TAB PO SCH (09:00)
--- NOTE | 2019-02-20 10:47 | RADIOLOGY IMAGING REPORT ---
FACILITY: [facility] - [place] PATIENT NAME: Cirilo Savage : 1955 MR: [id number] V: [id number] EXAM DATE: ORDERING PHYSICIAN: MIKAYLA ROQUE TECHNOLOGIST: Location: [facility] Patient: Cirilo Savage : 1955 Visit/Account:[id number] Date of Sevice: 02/20/2019 Exam: KUB SINGLE VIEW ABDOMEN Indication: distention, RAD Comparison: CT 02/17/2019 Findings: There is mild gaseous distention of the stomach. There is a focal mildly distended loop of small bowel seen centrally, the remainder of the small bowel loops appear within normal limits. There is nonobstructive bowel gas pattern. No evidence of pneumoperitoneum is identified. IMPRESSION: 1. Nonobstructive bowel gas pattern with mild gaseous distention of the stomach Report Dictated By: Tyrone Gant at 02/20/2019 10:42 AM Report E-Signed By: Tyrone Gant at 02/20/2019 10:44 AM WSN:[id number]
--- NOTE | 2019-02-20 10:50 | RADIOLOGY IMAGING REPORT ---
FACILITY: [facility] - [place] PATIENT NAME: Cirilo Savage : 1955 MR: [id number] V: [id number] EXAM DATE: ORDERING PHYSICIAN: MIKAYLA ROQUE TECHNOLOGIST: Location: [facility] - [place] Patient: Cirilo Savage : 1955 Visit/Account:[id number] Date of Sevice: 02/20/2019 CHEST SINGLE AP INDICATION: pneumonia COMPARISON: 02/18/2019 FINDINGS: Heart size within normal limits. There is persistent left lower lobe atelectasis versus infiltrate with a probable pleural effusion The right lung is clear. IMPRESSION: 1. Persistent left lower lobe atelectasis versus infiltrate with probable small effusion Report Dictated By: Tyrone Gant at 02/20/2019 10:44 AM Report E-Signed By: Tyrone Gant at 02/20/2019 10:45 AM WSN:[id number]
[2019-02-20 11:21] VITALS: BP 138/97
[2019-02-20] MEDS: ACETAMINOPHEN(*)1000 MG/100 ML 100 ML IVPB PRN ×2 (11:49→17:41)
[2019-02-20] MEDS: METOPROLOL TART 5 MG/5 ML VIAL IVP SCH ×2 (11:49→17:42)
--- NOTE | 2019-02-20 14:03 | NUR ---
Dr. Carito Hall reports to hold PO med today as per KUB xray of gas pattern.
[2019-02-20 15:04] VITALS: BP 146/96
--- NOTE | 2019-02-20 16:23 | Hospitalist Progress Note ---
Physical Exam Vital Signs Date Time Temp Pulse Resp B/P (MAP) Pulse Ox O2 Delivery O2 Flow Rate FiO2 02/20/19 15:04 98.3 99 20 146/96 (113) 95 Room Air Intake and Output 02/20/19 07:00 Intake Total 1665 ml Output Total 1925 ml Balance -260 ml Intake Oral 320 ml IV Total 1345 ml Output Urine Total 1925 ml Result Diagram: 02/20/19 0536 02/20/19 0536 Assessment and Plan Problems: (1) Ileus Status: Acute Assessment & Plan: The patient developed abdominal distention and diminished bowel sounds. With this he had nausea but no vomiting. KUB showed a nonobstructive bowel gas pattern and gaseous distention of the stomach. He was made NPO and will be monitored. (2) Aspiration pneumonia Status: Acute Assessment & Plan: It appears he probably has an aspiration pneumonia in left lung base. He reports vomiting "at least twice" while he was on the floor at home. He was placed on IV Unasyn. Continue supplemental oxygen. CT scan noted possible contusion, but this is probably an aspiration event. Will add scheduled nebulizers and flutter therapy today to help with lung sounds. His WBC is trending down. He is currently requiring 1.5L per NC to maintain his saturations. (3) New onset atrial fibrillation Status: Acute Assessment & Plan: The patient had a normal heart rate on admission and then developed tachycardia. His heart tones were distant on exam. EKG showed atrial fibrillation. Troponin was negative and EKG showed now signs of ischemia. He had an echo in September of this year which was essentially normal with EF of 60-65%. He had a SPECT imaging study in June of 2018 that was negative for ischemia. The patient had been on diltiazem and Bystolic at home and his rate was only mildly elevated. He developed an ileus so was placed on IV metoprolol in place of Bystolic for rate control on 02/20/19. He was placed on telemetry for closer monitoring. (4) Rhabdomyolysis Status: Acute Assessment & Plan: Due to >24 hours on floor after fall. He did have positive blood on dipstick UA without significant hematuria. He most likely has some myoglobinuria. Will continue IV fluids. His CPK has improved. Continue fluids. (5) Hip fracture Status: Acute Assessment & Plan: At this point we are working him up for surgery/anesthesia. Would like to get him started on IV antibiotics for his probable aspiration pneumonia. Would like to evaluate his new onset a fib. He also has a history of subclinical hyperthyroidism and stopped his methimazole several months ago so will need a TSH. Would also like to make sure his rhabdomyolysis/myoglobinuria improve/resolve. Will also need to be sure protime/INR is down to near normal range prior to surgery. If status shows improvement, he could be ready for surgery in next day or two. The patient did have a Spect imaging study in June which showed no evidence of myocardial ischemia. He had a normal ech ocardiogram in September of this year as well. EF is estimated to be 60-65%. (6) Chronic anticoagulation Status: Chronic Assessment & Plan: He has been on this for a history of DVT. His INR was 2.0 at time of admission. Continue to hold warfarin in anticipation of surgical intervention. Watch INR. Will place on prophylactic Lovenox while awaiting surgery. (7) Polycythemia Status: Chronic Assessment & Plan: Secondary. Likely due to COPD/chronic hypoxia. He has been f ollowing with hematology/oncology. (8) Hypertension Status: Chronic Assessment & Plan: BPs have been acceptable off his usual medications. Bystolic was resumed with hold parameters but he developed an ileus. He is on IV metoprolol with hold parameters currently for BP and a fib. (9) Type 2 diabetes mellitus Status: Chronic Assessment & Plan: Will have him on ADA diet, low dose Lantus 10 units SQ qHS, and SSI as needed during perioperative period. Monitor glucoses AC and HS. (10) Subclinical hyperthyroidism Status: Chronic Assessment & Plan: The patient was on methimazole but stopped it several months ago. He had a thyroid uptake scan in October of this year which was normal. A TSH is low at 0.04. Free T3 and free T4 are pending. Time Spent on Plan of Care: < 30 min Exam Sepsis Risk: No Definite Risk MIKAYLA ROQUE MD Feb 20, 2019 16:23
[2019-02-20] MEDS ORDERED: MORPHINE 2 MG/ML SYR IVP PRN (18:50)
[2019-02-20] MEDS ORDERED: MIRT45TA8 PO (19:34)
[2019-02-20 19:35] VITALS: BP 136/99
[2019-02-20] MEDS: INSULIN GLARGINE 100 U/ML 3 ML PEN SUBQ SCH (21:00)
[2019-02-20] MEDS: PANTOPRAZOLE SOD 40 MG IV VIAL IVP SCH (21:02)
[2019-02-20] MEDS: MIRTAZAPINE PO SCH (21:04)
[2019-02-21] VITALS (22 sets, daily range): BP systolic 106–153; BP diastolic 69–100
[2019-02-21] MEDS: ACETAMINOPHEN(*)1000 MG/100 ML 100 ML IVPB PRN ×4 (00:42→22:19)
[2019-02-21] MEDS: METOPROLOL TART 5 MG/5 ML VIAL IVP SCH ×3 (00:43→12:05)
[2019-02-21] MEDS: AMPICILLIN/SULBACT (*) 3 GM VL 3 GM in NS(*) 0.9% 100 ML MINI-BAG 100 ML IVPB SCH ×4 (03:55→21:34)
[2019-02-21 05:46] LABS: INR 1.09
[2019-02-21 05:49] LABS: PLATELET COUNT, AUTOMATED 239 K/uL (150-450)
[2019-02-21] MEDS: ALBUTEROL/IPRATROPIUM 3 ML NEB NEB SCH ×4 (06:00→17:49)
[2019-02-21] MEDS: PANTOPRAZOLE SOD 40 MG IV VIAL IVP SCH ×2 (07:28→21:32)
[2019-02-21] MEDS: NS(*) 0.9% 1000 ML BAG 1,000 ML IV PRN (07:57)
[2019-02-21] MEDS ORDERED: ROPIVACAINE 0.2% 20 ML VIAL ONE ×2 (08:26→08:30)
[2019-02-21] MEDS ORDERED: DEXAMETHASONE SOD 4 MG/ML VIAL ONE (08:27)
[2019-02-21] MEDS ORDERED: PROPOFOL EMUL(*) 10MG/ML 20 ML 20 ML ONE (08:27)
[2019-02-21] MEDS ORDERED: LIDOCAINE MPF 1% 5 ML VIAL ONE (08:27)
[2019-02-21] MEDS ORDERED: ONDANSETRON 4 MG/2 ML VIAL ONE (08:27)
[2019-02-21] MEDS ORDERED: fentaNYL CITR 100 MCG/2 ML AMP ONE (08:28)
[2019-02-21] MEDS ORDERED: KETAMINE HCL-NS 50 MG/5 ML SYR ONE (08:29)
[2019-02-21] MEDS ORDERED: PROMETHAZINE 25 MG/ML 1 ML AMP IVP PRN ×2 (08:40→11:45)
[2019-02-21] MEDS ORDERED: HYDROmorphone HCL 2 MG/ML SDV ONE (08:44)
[2019-02-21] MEDS ORDERED: MIDAZOLAM 2 MG/2 ML VIAL ONE (08:56)
[2019-02-21] MEDS ORDERED: ESMOLOL 10 MG/ML 10ML SDV ONE ×2 (10:05→11:02)
--- NOTE | 2019-02-21 10:52 | RADIOLOGY IMAGING REPORT ---
FAC[place] [facility] [place]IENT NAME: Cirilo Savage : 1955 MR: [id number] V: [id number] EXAM DATE: ORDERING PHYSICIAN: WAGNER YAN TECHNOLOGIST: Location: [facility] Patient: Cirilo Savage : 1955 Visit/Account:[id number] Date of Sevice: 02/21/2019 Examination: Left hip-intraoperative HISTORY: Femur fracture. Fixation. FINDINGS: 5 intraoperative images are obtained of the left hip. One minute 20 seconds of fluoroscopy time was u tilized. There is ongoing short antegrade nail fixation of a proximal left femur fracture. Alignment is near-a natomic. There is a proximal screw traversing the femoral neck into the femoral head. There is a sing le distal interlocking screw. Femoral head remains normally aligned with the acetabulum. There are mi ld changes of osteoarthritis at the hip. IMPRESSION: 1. Ongoing short antegrade nail fixation of a left proximal femur fracture. Report Dictated By: Maxx Patel at 02/21/2019 10:45 AM Report E-Signed By: Maxx Patel at 02/21/2019 10:48 AM WSN:[id number]
--- NOTE | 2019-02-21 11:31 | Hospitalist Progress Note ---
Subjective Progress Notes Subjective He had some left hip pain. He reports 10 years of MOORE that is stable. He also reports 4 years of intermittent chest pain with exertion that is stable. Physical Exam Vital Signs Date Time Temp Pulse Resp B/P (MAP) Pulse Ox O2 Delivery O2 Flow Rate FiO2 02/21/19 07:41 93 Room Air 02/21/19 07:18 98.4 100 20 144/100 (115) 02/20/19 15:04 Intake and Output 02/21/19 07:00 Intake Total 2674 ml Output Total 1870 ml Balance 804 ml IV Total 2674 ml Output Urine Total 1870 ml # Bowel Movements 1 General Appearance: Alert, Awake, No Acute Distress Cardiovascular: Regular Rate and Rhythm Respiratory: Clear to Auscultation Extremities: No Edema Result Diagram: 02/21/1951202/21/19512 Assessment and Plan Problems: (1) Pre-op evaluation Status: Acute Assessment & Plan: He is at moderate risk for cardiovascular complications secondary to new onset atrial fibrillation, HTN, T2DM, and hyperlipidemia. However, he had a normal nuclear stress test on 06/15/18 and echo on 09/29/18. He is rate controlled. No further work up needed. He is a moderate risk for pulmonary complications secondary to aspiration pneumonia and COPD. However, his lungs are clear. He is on room air. He is breathing comfortably. Afebrile. No further treatment or work up needed. He is cleared for surgery. He has ongoing acute medical issues, but the risks of delaying repair outweigh risks of surgery. (2) Ileus Status: Acute Assessment & Plan: The patient developed abdominal distention and diminished bowel sounds. With this he had nausea but no vomiting. KUB showed a nonobstructive bowel gas pattern and gaseous distention of the stomach. He was made NPO and will be monitored. (3) Aspiration pneumonia Status: Acute Assessment & Plan: It appears he probably has an aspiration pneumonia in left lung base. He reports vomiting "at least twice" while he was on the floor at home. He was placed on IV Unasyn. Now on RA. CT scan noted possible contusion, but this is probably an aspiration event. (4) New onset atrial fibrillation Status: Acute Assessment & Plan: The patient had a normal heart rate on admission and then developed mild tachycardia. EKG showed atrial fibrillation. Troponin was negative and EKG showed no signs of ischemia. He had an echo in September of this year which was essentially normal with EF of 60-65%. He had a SPECT imaging study in June of 2018 that was negative for ischemia. The patient had been on verapamil and Bystolic at home and his rate was only mildly elevated. He developed an ileus so was placed on IV metoprolol in place of Bystolic for rate control on 02/20/19. He was placed on telemetry for closer monitoring. (5) Hip fracture Status: Acute Assessment & Plan: Secondary to a fall. See above. He is to get a repair today. (6) Rhabdomyolysis Status: Resolved Assessment & Plan: Due to >24 hours on floor after fall. He did have positive blood on dipstick UA without significant hematuria. He most likely has some myoglobinuria. Will continue IV fluids. His CPK has improved. Continue fluids. (7) Chronic anticoagulation Status: Chronic Assessment & Plan: He has been on this for a history of DVT. His INR was 2.0 at time of admission. Continue to hold warfarin in anticipation of surgical intervention. INR is now wnl. (8) Polycythemia Status: Chronic Assessment & Plan: Secondary. Likely due to COPD/chronic hypoxia. He has been following with hematology/oncology. (9) Hypertension Status: Chronic Assessment & Plan: BPs have been acceptable off his usual medications. Bystolic was resumed with hold parameters but he developed an ileus. He is on IV metoprolol with hold parameters currently for BP and a fib. (10) Type 2 diabetes mellitus Status: Chronic Assessment & Plan: Will have him on ADA diet, low dose Lantus 10 units SQ qHS, and SSI as needed during perioperative period. Monitor glucoses AC and HS. (11) Subclinical hyperthyroidism Status: Chronic Assessment & Plan: The patient was on methimazole but stopped it several months ago. He had a thyroid uptake scan in October of this year which was normal. A TSH is low at 0.04. Free T3 and free T4 are pending. Exam Sepsis Risk: No Definite Risk INES BELTRE MD Feb 21, 2019 11:31
[2019-02-21] MEDS ORDERED: ACETAMINOPHEN 500 MG TAB PO PRN (11:45)
[2019-02-21] MEDS ORDERED: oxyCODON/ACET (*)5/325MG (CII) 1 TAB TAB PO PRN (11:45)
[2019-02-21] MEDS ORDERED: BISACODYL 10 MG SUPP PR PRN (11:45)
[2019-02-21] MEDS ORDERED: MAGNESIUM CITRATE 300 ML BTL PO PRN (11:45)
[2019-02-21] MEDS ORDERED: KCL/D5LR 20 MEQ/1000 ML PREMIX 1,000 ML IV PRN (11:45)
[2019-02-21] MEDS ORDERED: ONDANSETRON 4 MG/2 ML VIAL IVP PRN (11:45)
[2019-02-21] MEDS ORDERED: MAGNESIUM HYDROXIDE* 30ML UDCP PO PRN (11:45)
[2019-02-21] MEDS ORDERED: diphenhydrAMINE 25 MG CAP PO PRN (11:45)
[2019-02-21] MEDS ORDERED: NORMOSOL R SOLN(*) 1000 ML BAG 1,000 ML IV ONE (12:25)
[2019-02-21] MEDS ORDERED: FLUMAZENIL 0.1 MG/ML 5 ML VIAL ONE (12:32)
[2019-02-21] MEDS ORDERED: NALOXONE HCL 0.4 MG/ML VIAL ONE ×2 (12:41→12:42)
--- NOTE | 2019-02-21 12:57 | RADIOLOGY IMAGING REPORT ---
FACILITY: [facility] PATIENT NAME: Cirilo Savage : 1955 MR: [id number] V: [id number] EXAM DATE: ORDERING PHYSICIAN: INES BELTRE TECHNOLOGIST: Location: [facility] - [place] Patient: Cirilo Savgae : 1955 Visit/Account:[id number] Date of Sevice: 02/21/2019 CHEST SINGLE AP Indication: Pneumonia. Comparison: 02/20/2019 Findings: The left lung base is better aerated on today's exam. There may be a persistent tiny effusion but no focal confluent infiltrate is seen. Right lung is clear. No pneumothorax. Heart size and mediastinal contours are normal. IMPRESSION: 1. Improving atelectasis versus infiltrate within the left lung base. 2. Trace left effusion blunting the costophrenic angle. Report Dictated By: Maxx Patel at 02/21/2019 12:47 PM Report E-Signed By: Maxx Patel at 02/21/2019 12:54 PM WSN:[id number]
[2019-02-21] MEDS: OXcarbazepine 300 MG TAB PO SCH ×3 (14:00→21:32)
[2019-02-21] MEDS ORDERED: DULoxetine HCL 30 MG CAPCR PO ONE (14:00)
[2019-02-21] MEDS ORDERED: NEBIVOLOL HCL 5 MG TAB PO ONE (14:00)
[2019-02-21] MEDS: DULoxetine HCL 30 MG CAPCR PO SCH ×2 (14:14→21:32)
[2019-02-21] MEDS: TOPIRAMATE 100 MG TAB PO SCH (14:15)
[2019-02-21] MEDS: NEBIVOLOL HCL 5 MG TAB PO SCH ×2 (14:15→21:00)
[2019-02-21] MEDS: ARIPiprazole 10 MG TAB PO SCH (14:16)
[2019-02-21] MEDS: CELECOXIB 200 MG CAP PO PRN (14:16)
--- NOTE | 2019-02-21 15:45 | Miscellaneous Provider Note ---
Miscellaneous Provider Note Note In PACU, the patient had a heart rate in the 120's, was sweaty, had some bloody sputum and was slow to wake up. CXR was slightly improved from previous. He didn't respond to Romazicon, but woke up with 0.4mg of Narcan. He hasn't had anymore episodes of bloody sputum. His heart came down to 110's with IV metoprolol. INES BELTRE MD Feb 21, 2019 15:45
[2019-02-21] MEDS ORDERED: ceFAZolin(*) 1 GM VIAL 1 GM in NS(*) 0.9% 100 ML MINI-BAG 100 ML IVPB SCH (17:00)
[2019-02-21] MEDS: METOPROLOL TART 5 MG/5 ML VIAL IVP PRN ×2 (17:05→19:55)
[2019-02-21] MEDS: oxyCODONE HCL 5 MG CAP PO PRN (19:55)
[2019-02-21] MEDS: BENZOCAINE/MENTHOL 1 EACH LOZG PO PRN (21:31)
[2019-02-21] MEDS: INSULIN GLARGINE 100 U/ML 3 ML PEN SUBQ SCH (21:32)
[2019-02-21] MEDS: MIRTAZAPINE PO SCH (21:32)
[2019-02-22] VITALS (8 sets, daily range): BP systolic 108–135; BP diastolic 76–99
[2019-02-22] MEDS: AMPICILLIN/SULBACT (*) 3 GM VL 3 GM in NS(*) 0.9% 100 ML MINI-BAG 100 ML IVPB SCH ×4 (02:31→21:11)
--- NOTE | 2019-02-22 03:53 | OPERATIVE REPORT 1 ---
EVENT DATE: February 21, 2019 SURGEON: Wally Pandya MD ANESTHESIOLOGIST: Deep Prince MD ANESTHESIA: General plus block. PREOPERATIVE DIAGNOSIS Intertrochanteric hip fracture. POSTOPERATIVE DIAGNOSIS Intertrochanteric hip fracture. PROCEDURE PERFORMED Intramedullary nailing of the left intertrochanteric hip fracture. ESTIMATED BLOOD LOSS Minimal. FLUIDS Minimal. DESCRIPTION OF PROCEDURE Patient was brought to the operating room and placed in the supine position. With this, he was placed into traction on the traction bed. The left leg was placed into traction. The right leg was flexed, adducted, abducted, and externally rotated in order to get the C-arm in. Once we had this done, we brought the C-arm in to reduce the fracture. Under fluoroscopy, I was able to internally rotate the leg and pull traction and almost get a perfect anatomic reduction of the intertrochanteric hip fracture. It looked like a very stable intertrochanteric hip fracture. At this point, we made a small incision above the greater trochanter on the lateral aspect of the hip. The skin was incised with a #15 blade and dissected down to subcutaneous tissue. The subcutaneous tissue was bluntly dissected down to the IT band. IT band was then incised, and we were able to get through to the greater trochanter. At this point, I had a starting point with a K-wire. It was very difficult due to the size of his leg to get him in a good position, but once I was able to get the K-wire down below the lesser trochanter, I then took a large reamer and reamed from the greater trochanter down into the femoral shaft. Once that was reamed, I was able to then decide to have a 130/180 mm short gamma nail. I was able to place this down without any difficulty. I got it lined up in the correct position, checked on the lateral, made sure that the femoral head was in appropriate position, not too plantar flexed or dorsiflexed. Under fluoroscopy, I was able to put a K-wire across the femoral neck using the guide. Once we had the guide in appropriate position, both checked on AP and lateral, had it slightly inferior and slightly posterior, which I thought was perfect position. We then drilled over top of the K-wire and then placed a 100 mm screw into the femoral head of the gamma nail. We then used a locking screw, came down from the top and was able to lock the intertrochanteric screw into the femoral shaft. Once that was locked, we checked for rotation and made sure it was locked nicely, which it was. We then turned our attention to the distal screw. Using the outrigger guide, we placed a small incision over the distal femur, bluntly dissected down to the bone. We then drilled across the bone, measured out and placed a distal screw across the femoral nail. We checked on AP and lateral, made sure that it was in the right position and good alignment. At this point, we then put an Encap in. From here, we pulled the outrigger off and then put the Encap in, checked AP, lateral and oblique, made sure all the screws and hip were in good alignment. We then closed using 2-0 Vicryl of the IT band, then 3- 0 Monocryl for the subcuticular tissue, and then ata, Adaptic, 4x4s. Patient went to Recovery with no complications. ELISE
[2019-02-22] MEDS: oxyCODONE HCL 5 MG CAP PO PRN ×5 (04:35→21:04)
[2019-02-22] MEDS: ALBUTEROL/IPRATROPIUM 3 ML NEB NEB SCH ×3 (05:12→14:02)
[2019-02-22 06:05] LABS: INR 1.06
[2019-02-22] MEDS: ACETAMINOPHEN(*)1000 MG/100 ML 100 ML IVPB PRN ×2 (06:26→15:20)
[2019-02-22] MEDS: PANTOPRAZOLE SOD 40 MG IV VIAL IVP SCH (08:54)
[2019-02-22] MEDS: NEBIVOLOL HCL 5 MG TAB PO SCH ×2 (08:54→21:05)
[2019-02-22] MEDS: DULoxetine HCL 30 MG CAPCR PO SCH ×2 (08:54→21:04)
[2019-02-22] MEDS: ARIPiprazole 10 MG TAB PO SCH (08:56)
[2019-02-22] MEDS: OXcarbazepine 300 MG TAB PO SCH ×3 (08:56→21:05)
[2019-02-22] MEDS: TOPIRAMATE 100 MG TAB PO SCH (08:56)
[2019-02-22] MEDS ORDERED: ENOXAPARIN 40 MG/0.4ML SYR SC SCH (09:00)
[2019-02-22] MEDS: METOPROLOL TART 5 MG/5 ML VIAL IVP PRN ×4 (10:46→16:52)
--- NOTE | 2019-02-22 11:08 | Hospitalist Progress Note ---
Subjective Progress Notes Subjective He has complaints of pain to the surgical site. He would like more medication. Patient Complains of: Cardiovascular: No: Chest Pain Respiratory: No: Shortness of Breath Physical Exam Vital Signs Date Time Temp Pulse Resp B/P (MAP) Pulse Ox O2 Delivery O2 Flow Rate FiO2 02/22/19 10:41 122 130/80 (97) 02/22/19 10:31 94 Nasal Cannula 1.0 02/22/19 09:26 16 02/22/19 07:25 98.2 Intake and Output 02/22/19 01:00 Intake Total 7096 ml Output Total 2225 ml Balance 4871 ml Intake Oral 500 ml IV Total 5296 ml Other 1300 ml Output Urine Total 2200 ml Oral Regurgitation 25 ml # Voids 1 # Bowel Movements 1 General Appearance: Alert, Awake, No Acute Distress, Afebrile Neuro: No Gross deficits Cardiovascular: Other (tachycardia) Respiratory: No Respiratory Distress, Clear to Auscultation Extremities: Warm, Perfused; No Edema Psych: Alert & Oriented X3, Appropriate Mood & Affect Result Diagram: 02/21/1951202/21/19512 Assessment and Plan Problems: (1) Pre-op evaluation Status: Acute Assessment & Plan: He is at moderate risk for cardiovascular complications secondary to new onset atrial fibrillation, HTN, T2DM, and hyperlipidemia. However, he had a normal nuclear stress test on 06/15/18 and echo on 09/29/18. He is rate controlled. No further work up needed. He is a moderate risk for pulmonary complications secondary to aspiration pneumonia and COPD. However, his lungs are clear. He is on room air. He is breathing comfortably. Afebrile. No further treatment or work up needed. He is cleared for surgery. He has ongoing acute medical issues, but the risks of delaying repair outweigh risks of surgery. (2) Ileus Status: Acute Assessment & Plan: The patient developed abdominal distention and diminished bowel sounds. With this he had nausea but no vomiting. KUB showed a nonobstructive bowel gas pattern and gaseous distention of the stomach. He was made NPO and was monitored. He did have bowel movement yesterday and is eating without difficulty. Continue to monitor. (3) Aspiration pneumonia Status: Acute Assessment & Plan: It appears he probably has an aspiration pneumonia in left lung base. He reports vomiting "at least twice" while he was on the floor at [facility]. He was placed on IV Unasyn. Now on RA. CT scan noted possible contusion, but this is probably an aspiration event. (4) New onset atrial fibrillation Status: Acute Assessment & Plan: The patient had a normal heart rate on admission and then developed mild tachycardia. EKG showed atrial fibrillation. Troponin was negative and EKG showed no signs of ischemia. He had an echo in September of this year which was essentially normal with EF of 60-65%. He had a SPECT imaging study in June of 2018 that was negative for ischemia. The patient had been on verapamil and Bystolic at home and his rate was only mildly elevated. He devel oped an ileus so was placed on IV metoprolol in place of Bystolic for rate control on 02/20/19. He was placed on telemetry for closer monitoring. Warfarin to be resumed today. (5) Hip fracture Status: Acute Assessment & Plan: Secondary to a fall. See above. He is to get a repair today. (6) Rhabdomyolysis Status: Resolved Assessment & Plan: Due to >24 hours on floor after fall. He did have positive blood on dipstick UA without significant hematuria. He most likely has some myoglobinuria. Will continue IV fluids. His CPK has improved. Continue fluids. (7) Chronic anticoagulation Status: Chronic Assessment & Plan: He has been on this for a history of DVT. His INR was 2.0 at time of admission. Continue to hold warfarin in anticipation of surgical intervention. INR is now wnl. (8) Polycythemia Status: Chronic Assessment & Plan: Secondary. Likely due to COPD/chronic hypoxia. He has been following with hematology/oncology. (9) Hypertension Status: Chronic Assessment & Plan: BPs have been acceptable off his usual medications. Bystolic was resumed with hold parameters but he developed an ileus. He is on IV metoprolol with hold parameters currently for BP and a fib. (10) Type 2 diabetes mellitus Status: Chronic Assessment & Plan: Will have him on ADA diet, low dose Lantus 10 units SQ qHS, and SSI as needed. Monitor glucoses AC and HS. (11) Subclinical hyperthyroidism Status: Chronic Assessment & Plan: The patient was on methimazole but stopped it several months ago. He had a thyroid uptake scan in October of this year which was normal. A TSH is low at 0.04. Free T3 and free T4 are pending. Exam Sepsis Risk: No Definite Risk CHELLY SMITH [facility] Feb 22, 2019 11:08
[2019-02-22] MEDS: CELECOXIB 200 MG CAP PO PRN (11:56)
[2019-02-22] MEDS: INSULIN HUM LISPRO 100 UN/ML 3 ML VIAL SUBQ PRN ×2 (11:57→16:54)
[2019-02-22] MEDS: WARFARIN SOD 5 MG TAB PO SCH (12:43)
--- NOTE | 2019-02-22 13:26 | NUR ---
Physical Therapy Impression Pt eval complete. Pt refused treatment due to pain levels of 6-7. Recommendations pending further treatment. Physical Therapy Goals 1. Morris bed mobility 2. Morris transfer ability 3. Morris gait ambulation for 150 ft with use of RW 4. Morris ability to ascend/descend 1 stair. Patient's Goals Addendum: 02/22/19 at 1326 by MORENO NEWELL PT Amended: Links added.
--- NOTE | 2019-02-22 14:28 | NUR ---
Physical Therapy Impression Attempted to see Pt with OT at which time he refused mobility again. Pt reporting 8/10 pain and was given pain medication approximately 40 minutes ago (per nursing). Anticipate Pt will require long-term rehab as Pt has not yet been able to participate in physical therapy. Physical Therapy Goals 1. Morris bed mobility 2. Morris transfer ability 3. Morris gait ambulation for 150 ft with use of RW 4. Morris ability to ascend/descend 1 stair. Patient's Goals
[2019-02-22] MEDS: LEVALBUTEROL 1.25 MG/3 ML NEB NEB SCH (16:58)
[2019-02-22] MEDS: MIRTAZAPINE PO SCH (21:04)
[2019-02-22] MEDS: DOCUSATE SODIUM 100 MG CAP PO SCH (21:04)
[2019-02-22] MEDS: PANTOPRAZOLE SOD 40 MG TABEC PO SCH (21:05)
[2019-02-22] MEDS: INSULIN GLARGINE 100 U/ML 3 ML PEN SUBQ SCH (21:12)
[2019-02-22] MEDS: BENZOCAINE/MENTHOL 1 EACH LOZG PO PRN (21:27)
[2019-02-23] MEDS: METOPROLOL TART 5 MG/5 ML VIAL IVP PRN ×3 (02:38→06:07)
[2019-02-23] MEDS: AMPICILLIN/SULBACT (*) 3 GM VL 3 GM in NS(*) 0.9% 100 ML MINI-BAG 100 ML IVPB SCH ×4 (02:43→21:09)
[2019-02-23] MEDS: oxyCODONE HCL 5 MG CAP PO PRN ×2 (03:04→16:24)
[2019-02-23 03:18] VITALS: BP 131/91
[2019-02-23] MEDS: LEVALBUTEROL 1.25 MG/3 ML NEB NEB SCH ×4 (05:33→17:40)
[2019-02-23 06:17] LABS: PLATELET COUNT, AUTOMATED 244 K/uL (150-450)
[2019-02-23 06:21] LABS: INR 1.01
--- NOTE | 2019-02-23 07:47 | Medical Nutrition Therapy ---
Nutrition Anthropometrics Height (Inches): 68.00 Height (Calculated Centimeters: 172.245458 Weight (Pounds): 209 Weight (Calculated Kilograms): 94.801 BMI: 31.8 Thuan Nutrition Score: Probably Inadequate Thuan Nutrition Risk Score: 15 Dietary Referral Nutrition Risk Factors: Nutrition Risk Comment: Physical Findings Physical Appearance: Obese BMI 30-39 Skin Appearance Skin Appearance: Edema Edema Location Modifier: Right Edema Location: Lower Extremity Type of Edema: Degree of Edema: Gastrointestinal Symptoms GI Symtoms: Change in Bowel Pattern Tube Present: Bowel Sounds: Recent Bowel Pattern: Stool Characteristics: Nutritional Diagnosis Nutritional Risk Acuity 3: COPD Unstable Nutritional Risk Acuity 4: Good Appetite Past Medical History: DM, COPD,HTN Nutritional Acuity: 3-Mild Energy Requirement: 2249 (MSJ) Protein Requirement: 94 (1g/kg) Fluid Requirement: 2249 (1mL/kcal) Diet Type: NPO (Nothing by Mouth) (For surgery ), Diet as Tolerated BRI/REG Drug: Diuretics, Warfarin Drug/Nutrition Recommendations: Check Serum K+ Do Not Serve Any of the Follow: Broccoli, Brussel Sprouts, Spinach, Literberry Lettuce Nutrition Monitoring & Eval Nutrition Goals: Eat 50-100% Meal Nutritional Goals Comment: Pt consumed 75-100% of meals on 02/22. Nutrition Follow-Up: Good Intake RD Patient Assessment Time: [address] Assessment Type: RD Re-Assessment Patient Nutrition Acuity: 3-Mild Follow Up Date: Feb 28, 2019 Nutritional Comment: 02/18/2019Reviewed charting. Pertinent medical hx includes DM,COPD and HTN. Recommended high protein for hip fracture healing. RD will continue to monitor and provide education as needed.KORINA 02/22 Pt currently BRI with 75-100% intakes on 02/22. Medications include enoxaparin, warfarin, and insulin. Pt WBC of 13.4 and RBC of 5.88 are elevated. Whole blood glucose of 202 is elevated. Albumin of 2.8 and total protein of 5.6 are decreased. Pt is experiencing non-pitting edema of the right lower extremity. Will monitor intake of vit k rich foods due to warfarin use. Monitor for adequate intake.-DANNY MARRUFO Feb 23, 2019 07:47
[2019-02-23] MEDS: INSULIN HUM LISPRO 100 UN/ML 3 ML VIAL SUBQ PRN (08:10)
[2019-02-23] MEDS ORDERED: VERAPAMIL HCL SR 240 MG TABCR PO SCH (09:00)
[2019-02-23] MEDS ORDERED: LEVALBUTEROL 1.25 MG/3 ML NEB NEB SCH (09:15)
[2019-02-23] MEDS: POLYETHYLENE GLYCOL 17 GM PKT PO SCH (10:12)
[2019-02-23] MEDS: ARIPiprazole 10 MG TAB PO SCH (10:13)
[2019-02-23] MEDS: ENOXAPARIN 40 MG/0.4ML SYR SC SCH (10:13)
[2019-02-23] MEDS: DOCUSATE SODIUM 100 MG CAP PO SCH ×2 (10:13→21:09)
[2019-02-23] MEDS: TOPIRAMATE 100 MG TAB PO SCH (10:13)
[2019-02-23] MEDS: NEBIVOLOL HCL 5 MG TAB PO SCH (10:14)
[2019-02-23] MEDS: PANTOPRAZOLE SOD 40 MG TABEC PO SCH ×2 (10:15→21:09)
[2019-02-23] MEDS: OXcarbazepine 300 MG TAB PO SCH ×3 (10:18→21:09)
--- NOTE | 2019-02-23 10:23 | Hospitalist Progress Note ---
Subjective Progress Notes Subjective He denies cp/sob. Staff concerned about him having upper airway secretions that he doesn't clear well. He refused to work with therapy yesterday secondary to post op pain. He isn't complaining of much pain this morning. Physical Exam Vital Signs Date Time Temp Pulse Resp B/P (MAP) Pulse Ox O2 Delivery O2 Flow Rate FiO2 02/23/19 09:38 116 22 02/23/19 09:30 95 Nasal Cannula 1.0 02/23/19 03:18 97.7 131/91 (104) Intake and Output0 02/23/19 07:00 Intake Total 1380 ml Output Total 4050 ml Balance -2670 ml Intake Oral 1080 ml IV Total 300 ml Output Urine Total 4050 ml General Appearance: Other (Sleeping, but woke up fairly easily. ) Neuro: No Gross deficits Respiratory: Other (Breathing comfortably. Much upper airway sounds on exam. He is able to cough some of it up.) Extremities: No Edema Result Diagram: 02/23/1954102/23/19541 Assessment and Plan Problems: (1) Hip fracture Status: Acute Assessment & Plan: Secondary to a fall. He had a gamma nail placed on 02/21. He did require Narcan in PACU secondary to prolonged sedation. Warfarin/Lovenox for VTE prophylaxis. (2) New onset atrial fibrillation Status: Acute Assessment & Plan: The patient had a normal heart rate on admission and then developed mild tachycardia. EKG showed atrial fibrillation. Troponin was negative and EKG showed no signs of ischemia. He had an echo in September of this year which was essentially normal with EF of 60-65%. He had a SPECT imaging study in June of 2018 that was negative for ischemia. The patient had been on verapamil and Bystolic at home and his rate was only mildly elevated. He has been restarted on Bystolic, but still having heart rates in the 120's. Will restart Verapamil at 240mg a day (normally on 360mg) and follow rate. On warfarin for stroke prophylaxis. (3) Ileus Status: Resolved Assessment & Plan: The patient developed abdominal distention and diminished bowel sounds. With this he had nausea but no vomiting. KUB showed a nonobstructive bowel gas pattern and gaseous distention of the stomach. He was made NPO and was monitored. He did have bowel movement yesterday and is eating without difficulty. Continue to monitor. (4) Aspiration pneumonia Status: Acute Assessment & Plan: It appears he probably has an aspiration pneumonia in left lung base. He reports vomiting "at least twice" while he was on the floor at home. He was placed on IV Unasyn. Now on RA. CT scan noted possible contusion, but this is probably an aspiration event. Afebrile. Will start scheduled Xopenex to help clear secretions. He is very sensitive to narcotics, so have to balance pain control with over sedation. (5) Chronic anticoagulation Status: Chronic Assessment & Plan: He has been on this for a history of DVT. His INR was 2.0 at time of admission. INR now normal. Warfarin restarted and getting Lovenox 40mg a day to bridge. (6) Rhabdomyolysis Status: Resolved Assessment & Plan: Due to >24 hours on floor after fall. He did have positive blood on dipstick UA without significant hematuria. He most likely has some myoglobinuria. Will continue IV fluids. His CPK has improved. Continue fluids. (7) Polycythemia Status: Chronic Assessment & Plan: Secondary. Likely due to COPD/chronic hypoxia. He has been following with hematology/oncology. (8) Hypertension Status: Chronic Assessment & Plan: Controlled with only Bystolic. Lisinopril and Verapamil have been held. Restarting Verapamil. See above. (9) Type 2 diabetes mellitus Status: Chronic Assessment & Plan: Chronically on Lantus 60 units a day, Farxiga and weekly Trulicity. We have him on ADA diet, low dose Lantus 10 units SQ qHS, and SSI as needed. Restart Farxiga. Monitor glucoses AC and HS. (10) Subclinical hyperthyroidism Status: Chronic Assessment & Plan: The patient was on methimazole but stopped it several months ago. He had a thyroid uptake scan in October of this year which was normal. A TSH is low at 0.04. Free T3 low at 1.8 and Free T4 wnl. Will defer to his PCP about restarting methimazole. (11) Depression Status: Chronic Assessment & Plan: Chronically on Venlafaxine, Topamax, Latuda and Austedo. Will restart those medications. Exam Sepsis Risk: Sepsis Risk INES BELTRE MD Feb 23, 2019 10:23
[2019-02-23] MEDS: MONTELUKAST SODIUM 10 MG TAB PO SCH (10:25)
[2019-02-23] MEDS ORDERED: VERAPAMIL HCL SR 120 MG TABCR PO ONE (12:00)
[2019-02-23 12:10] VITALS: BP 120/92
--- NOTE | 2019-02-23 13:18 | NUR ---
Occupational Therapy Impression Co-evaluation with PT. Pt. would benefit from OT services 5x/ week to increase independence in ADL's. OT recommending pt. d/c to terminal worker subacute rehab. Occupational Therapy Goals 1. Pt. to perform dressing activities with Mod A. 2. Pt. to perform showering activities with MOd A. 3. Pt. to perform toileting activities with Mod A. 4. Pt. to perform grooming activities with SIMMS. Patient's Goal
[2019-02-23] MEDS: WARFARIN SOD 5 MG TAB PO SCH (13:34)
[2019-02-23 15:36] VITALS: BP 139/95
--- NOTE | 2019-02-23 16:04 | NUR ---
Physical Therapy Impression Pt requires Max A x3 supine>sit, Max Ax3 to stand pivot bed>chair using RW. recommend long-term rehab. Physical Therapy Goals 1. Morris bed mobility 2. Morris transfer ability 3. Morris gait ambulation for 150 ft with use of RW 4. Morris ability to ascend/descend 1 stair. Patient's Goals
--- NOTE | 2019-02-23 16:09 | NUR ---
Physical Therapy Impression Pt able to stand into EZ lift with Max A x2 and transfer sit>supine with Max A x2. Recommend long-term rehab. Physical Therapy Goals 1. Morris bed mobility 2. Morris transfer ability 3. Morris gait ambulation for 150 ft with use of RW 4. Morris ability to ascend/descend 1 stair. Patient's Goals
[2019-02-23] MEDS: ACETAMINOPHEN 500 MG TAB PO SCH (16:24)
[2019-02-23 19:17] VITALS: BP 112/75
[2019-02-23] MEDS ORDERED: NEBIVOLOL HCL 5 MG TAB PO SCH (21:00)
[2019-02-23] MEDS: DEUTETRABENAZINE 6 MG PO SCH (21:00)
[2019-02-23] MEDS: CELECOXIB 200 MG CAP PO SCH (21:09)
[2019-02-23] MEDS: MIRTAZAPINE PO SCH (21:09)
[2019-02-23] MEDS: INSULIN GLARGINE 100 U/ML 3 ML PEN SUBQ SCH (21:10)
[2019-02-23] MEDS: BENZOCAINE/MENTHOL 1 EACH LOZG PO PRN (21:28)
[2019-02-23 23:19] VITALS: BP 118/79
[2019-02-24] MEDS: ACETAMINOPHEN 500 MG TAB PO SCH ×3 (01:51→17:03)
[2019-02-24] MEDS: AMPICILLIN/SULBACT (*) 3 GM VL 3 GM in NS(*) 0.9% 100 ML MINI-BAG 100 ML IVPB SCH ×4 (04:39→22:36)
[2019-02-24 04:41] VITALS: BP 145/87
[2019-02-24] MEDS: oxyCODONE HCL 5 MG CAP PO PRN (04:57)
[2019-02-24] MEDS: LEVALBUTEROL 1.25 MG/3 ML NEB NEB SCH ×4 (05:43→17:41)
[2019-02-24 07:47] VITALS: BP 137/83
[2019-02-24] MEDS ORDERED: PROMETHAZINE 25 MG/ML 1 ML AMP IVP PRN (08:00)
[2019-02-24 08:41] LABS: INR 1.07
[2019-02-24] MEDS: DEUTETRABENAZINE 6 MG PO SCH ×2 (09:00→20:44)
[2019-02-24] MEDS: DAPAGLIFLOZIN PROPANEDIOL 10 MG TABLET PO SCH (09:00)
[2019-02-24] MEDS ORDERED: VERAPAMIL HCL SR 180 MG TABCR PO SCH ×2 (09:00)
[2019-02-24] MEDS ORDERED: METHIMAZOLE 10 MG TAB PO SCH (09:00)
[2019-02-24] MEDS: CELECOXIB 200 MG CAP PO SCH ×3 (09:55→21:00)
[2019-02-24] MEDS: DOCUSATE SODIUM 100 MG CAP PO SCH ×3 (09:55→21:00)
[2019-02-24] MEDS: VENLAFAXINE XR 75 MG CAPCR PO SCH (09:55)
[2019-02-24] MEDS: PANTOPRAZOLE SOD 40 MG TABEC PO SCH ×3 (09:56→21:00)
[2019-02-24] MEDS: MONTELUKAST SODIUM 10 MG TAB PO SCH (09:56)
[2019-02-24] MEDS: POLYETHYLENE GLYCOL 17 GM PKT PO SCH (09:56)
--- NOTE | 2019-02-24 09:58 | Hospitalist Progress Note ---
Subjective Progress Notes Subjective He reports some nausea/decreased appetite. He has been having BMs. He is slow to mobilize. Physical Exam Vital Signs Date Time Temp Pulse Resp B/P (MAP) Pulse Ox O2 Delivery O2 Flow Rate FiO2 02/24/19 07:47 98.1 100 18 137/83 (101) 93 Nasal Cannula 1.5 Intake and Output 02/24/19 07:00 Intake Total 800 ml Output Total 1100 ml Balance -300 ml Intake Oral 500 ml IV Total 300 ml Output Urine Total 1100 ml General Appearance: Alert, Awake Cardiovascular: Other (Somewhat irregular) Respiratory: Other (scattered rhonchi) Chest: No Tenderness GI: Soft and Non-Tender (BS present) Extremities: Warm, Perfused Result Diagram: 02/23/1954102/23/19541 Assessment and Plan Problems: (1) Hip fracture Status: Acute Assessment & Plan: Secondary to a fall. He had a gamma nail placed on 02/21/19. He did require Narcan in PACU secondary to prolonged sedation. He is on warfarin/Lovenox for VTE prophylaxis. I discussed the need to get him mobile and he reports understanding. (2) New onset atrial fibrillation Status: Acute Assessment & Plan: The patient had a normal heart rate on admission and then developed mild tachycardia. EKG showed atrial fibrillation. Troponin was negative and EKG showed no signs of ischemia. He had an echo in September of this year which was essentially normal with EF of 60-65%. He had a SPECT imaging study in June of 2018 that was negative for ischemia. The patient had been on verapamil and Bystolic at home and his rate was only mildly elevated. He has been restarted on Bystolic and Verapamil with improved heart rate. He is on warfarin for stroke prophylaxis. Follow INR. (3) Ileus Status: Resolved Assessment & Plan: The patient developed abdominal distention and diminished bowel sounds. With this he had nausea, but no vomiting. KUB showed a nonobstructive bowel gas pattern and gaseous distention of the stomach. He was made NPO and monitored. Ultimately, he did have a bowel movement and is eating without difficulty. Continue to monitor. (4) Aspiration pneumonia Status: Acute Assessment & Plan: It appears he probably has an aspiration pneumonia in left lung base. He reports vomiting "at least twice" while he was on the floor at home. He was placed on IV Unasyn. CT scan noted possible contusion, but this is probably an aspiration event. He is very sensitive to narcotics, so have to balance pain control with over sedation. (5) Chronic anticoagulation Status: Chronic Assessment & Plan: He has been on this for a history of DVT. His INR was 2.0 at time of admission. INR now normal. Warfarin restarted and getting Lovenox 40mg a day to bridge. (6) Rhabdomyolysis Status: Resolved Assessment & Plan: Now appears resolved. Due to >24 hours on floor after fall. He did have positive blood on dipstick UA without significant hematuria. He most likely had some myoglobinuria. (7) Polycythemia Status: Chronic Assessment & Plan: Secondary. Likely due to COPD/chronic hypoxia. He has been following with hematology/oncology. (8) Hypertension Status: Chronic Assessment & Plan: Controlled with Bystolic. Lisinopril and Verapamil were initially held. Restarted Verapamil for help with rate control. See above. (9) Type 2 diabetes mellitus Status: Chronic Assessment & Plan: Chronically on Lantus 60 units a day, Farxiga and weekly T rulicity. We have him on ADA diet, low dose Lantus 10 units SQ qHS, and SSI as needed. Restarted Farxiga (still holding Trulicity). Monitor glucoses AC and HS. (10) Subclinical hyperthyroidism Status: Chronic Assessment & Plan: The patient was on methimazole, but stopped it several months ago. He had a thyroid uptake scan in October of this year which was normal. A TSH is low at 0.04. Free T3 low at 1.8 and Free T4 wnl. Will defer to his PCP about restarting methimazole. (11) Depression Status: Chronic Assessment & Plan: Chronically on Venlafaxine, Topamax, Latuda and Austedo. We have restarted those medications. Exam Sepsis Risk: No Definite Risk KAYLA ROQUE MD Feb 24, 2019 09:58
[2019-02-24] MEDS: NEBIVOLOL HCL 5 MG TAB PO SCH ×2 (10:00→20:44)
[2019-02-24] MEDS: TOPIRAMATE 100 MG TAB PO SCH (10:02)
[2019-02-24] MEDS: OXcarbazepine 300 MG TAB PO SCH ×4 (10:02→21:00)
[2019-02-24] MEDS: ENOXAPARIN 40 MG/0.4ML SYR SC SCH (10:28)
--- NOTE | 2019-02-24 11:38 | NUR ---
Occupational Therapy Impression Co- treat with PT (billable minutes spit between 2 therapies). Pt. unable to take one step forward to initiate ambulation activity with FWW. Pt. heart rate elevated to 150 bpm following attempting to ambulate. OT continues to recommend pt. d/c to terminal make up operator subacute rehab. Occupational Therapy Goals 1. Pt. to perform dressing activities with Mod A. 2. Pt. to perform showering activities with MOd A. 3. Pt. to perform toileting activities with Mod A. 4. Pt. to perform grooming activities with SIMMS. Patient's Goal
[2019-02-24 12:01] VITALS: BP 113/76
[2019-02-24] MEDS: WARFARIN SOD 5 MG TAB PO SCH (12:33)
[2019-02-24] MEDS: INSULIN HUM LISPRO 100 UN/ML 3 ML VIAL SUBQ PRN (12:33)
--- NOTE | 2019-02-24 13:55 | NUR ---
This Physical Therapist or Information Technology Intern was present for the entire physical therapy session directing the services, making the skilled judgement, and was not engaged in treating another patient or doing another task at the same time as the treatment session. Addendum: 02/24/19 at 1356 by MORENO NEWELL PT Amended: Links added.
--- NOTE | 2019-02-24 13:56 | NUR ---
Physical Therapy Impression PT/OT co treat with time split for billing purposes.MaxA x2 provided for supine to sit xfer. MaxA x2 and RW required for sit<>stand xfer. Pt had difficulty with putting weight on L LE. Pt unable to take any steps, even with assistance weight shifting. MaxA x2 provided for supine to sit xfer. Verbal cues needed to stand up more straight. Pt stood for approximately two minutes before chair was brought behind to sit. HR raised into 150s during treatment, with no apparent signs of high HR. Pt would benefit from further skilled PT care to help promote and ensure safe ambulation. Rec long term rehab at discharge. Pt left sitting in chair with O2 on, call light in reach, and nursing notified. Physical Therapy Goals 1. Morris bed mobility 2. Morris transfer ability 3. Morris gait ambulation for 150 ft with use of RW 4. Morris ability to ascend/descend 1 stair. Patient's Goals
[2019-02-24 15:49] VITALS: BP 103/73
--- NOTE | 2019-02-24 15:55 | NUR ---
This Physical Therapist or Painter Bottom was present for the entire physical therapy session directing the services, making the skilled judgement, and was not engaged in treating another patient or doing another task at the same time as the treatment session. Addendum: 02/24/19 at 1555 by MORENO NEWELL PT Amended: Links added.
--- NOTE | 2019-02-24 15:55 | NUR ---
Physical Therapy Impression Despite reporting high levels of pain (7/10), Pt showed improved ability to weight shift side to side. Pt performed 3x sit<>stand with EZ lift and minAx2. In standing, Pt worked on shifting weight side to side. Ability to shift weight to left was reduced due to pain. On third transfer, Pt was able to shift weight to left and was able successfully lift right leg for ten weight shifts to the left. HR was more controlled during session,staying within expected limits. Pt would benefit from further skilled PT to improve weight shifts to allow for ambulation. Pt was left sitting in chair with O2 on, all needs met, and call light in reach. Rec predatory animal exterminator rehab at discharge. Physical Therapy Goals 1. Morris bed mobility 2. Morris transfer ability 3. Morris gait ambulation for 150 ft with use of RW 4. Morris ability to ascend/descend 1 stair. Patient's Goals
--- NOTE | 2019-02-24 17:08 | RADIOLOGY IMAGING REPORT ---
FACILITY: [facility] [place] PATIENT NAME: Cirilo Savage : 1955 MR: [id number] V: [id number] EXAM DATE: ORDERING PHYSICIAN: KAYLA ROQUE TECHNOLOGIST: Location: [facility] Patient: Cirilo Savage : 1955 Visit/Account:[id number] Date of Sevice: 02/24/2019 Exam type: KUB SINGLE VIEW ABDOMEN History: nausea/abdominal distension Comparison: February 20, 2019. Findings: Previously noted gaseous distention of the stomach is no longer seen. There is however moderate dist ention of numerous loops of small bowel and colon. This may be secondary to an ileus although correl ation with presence or absence of bowel sounds recommended. If a bowel obstruction is of clinical co ncern follow-up CT recommended. Incompletely imaged are postsurgical changes the left hip. IMPRESSION: 1. Prestenotic gaseous distended stomach is no longer seen There is moderate distention of numerous loops of large and small bowel which have increased when com pared the prior study. This may be secondary to an ileus although bowel obstruction is included in t he differential diagnosis. If of concern CT is recommended Report Dictated By: Maddy Cárdenas MD at 02/24/2019 5:01 PM Report E-Signed By: Maddy Cárdenas MD at 02/24/2019 5:03 PM WSN:CINDY
[2019-02-24 19:55] VITALS: BP 96/70
[2019-02-24] MEDS: MIRTAZAPINE PO SCH ×2 (20:43→21:00)
[2019-02-24] MEDS: INSULIN GLARGINE 100 U/ML 3 ML PEN SUBQ SCH (20:44)
[2019-02-24 22:37] VITALS: BP 99/70
[2019-02-25] MEDS: ACETAMINOPHEN 500 MG TAB PO SCH ×3 (01:00→20:00)
[2019-02-25 03:26] VITALS: BP 111/71
[2019-02-25] MEDS: AMPICILLIN/SULBACT (*) 3 GM VL 3 GM in NS(*) 0.9% 100 ML MINI-BAG 100 ML IVPB SCH (03:35)
[2019-02-25] MEDS ORDERED: ACETAMINOPHEN 500 MG TAB PO SCH (04:00)
[2019-02-25 05:37] LABS: PLATELET COUNT, AUTOMATED 250 K/uL (150-450)
[2019-02-25 05:42] LABS: INR 1.5
[2019-02-25] MEDS: LEVALBUTEROL 1.25 MG/3 ML NEB NEB SCH ×4 (05:48→18:00)
[2019-02-25] MEDS: BENZOCAINE/MENTHOL 1 EACH LOZG PO PRN (06:22)
[2019-02-25 07:10] VITALS: BP 91/62
[2019-02-25] MEDS ORDERED: oxyCODONE HCL 5 MG CAP PO PRN (07:55)
[2019-02-25] MEDS: DEUTETRABENAZINE 6 MG PO SCH ×2 (09:00→21:00)
[2019-02-25] MEDS: POLYETHYLENE GLYCOL 17 GM PKT PO SCH ×2 (09:00→09:08)
[2019-02-25] MEDS: DAPAGLIFLOZIN PROPANEDIOL 10 MG TABLET PO SCH (09:00)
[2019-02-25] MEDS: NEBIVOLOL HCL 5 MG TAB PO SCH ×2 (09:00→21:00)
[2019-02-25] MEDS: OXcarbazepine 300 MG TAB PO SCH ×3 (09:09→21:00)
[2019-02-25] MEDS: TOPIRAMATE 100 MG TAB PO SCH (09:09)
[2019-02-25] MEDS: AMOX/CLAV 875 MG TAB PO SCH ×2 (09:09→17:03)
[2019-02-25] MEDS: VENLAFAXINE XR 75 MG CAPCR PO SCH (09:09)
[2019-02-25] MEDS: DOCUSATE SODIUM 100 MG CAP PO SCH ×2 (09:09→21:00)
[2019-02-25] MEDS: ENOXAPARIN 40 MG/0.4ML SYR SC SCH (09:09)
[2019-02-25] MEDS: MONTELUKAST SODIUM 10 MG TAB PO SCH (09:09)
[2019-02-25] MEDS: CELECOXIB 200 MG CAP PO SCH ×2 (09:09→21:00)
[2019-02-25] MEDS: PANTOPRAZOLE SOD 40 MG TABEC PO SCH ×2 (09:09→21:00)
--- NOTE | 2019-02-25 10:20 | Medical Nutrition Therapy ---
Nutritional Education Nutrition Education Topic: Diabetic Nutrition Learning Readiness: Interested Teaching Methods: Discussion Response to Teaching: Verbalize understanding Teaching Recipient: Patient Nutrition Counselin02/25/19-Recieved call from [facility] pt having some issues staying within CHO limit of 60g per meal. Reviewed recent BGs and they have been good 84-158 before meals. Past BGs were higher. Discussed importance of maintaining blood glucose to promote healing of hip fx. Discussed high blood glucose will delay healing. Pt verabalized understanding. Discussed focusing on protein at each meal to promote healing but also as a strategy for maintaing BG. Discussed meal options within 60g CHO limit.KORINA Nutrition Monitoring & Eval RD Patient Assessment Time: [address] Assessment Type: RD Education Patient Nutrition Acuity: 3-Mild Follow Up Date: Feb 28, 2019 MATILDE PAT Feb 25, 2019 10:20
[2019-02-25 11:23] VITALS: BP 96/64
--- NOTE | 2019-02-25 11:38 | NUR ---
Physical Therapy Impression PT/OT co-treat with time split for billing purposes. Pt motivated for therapy and continues to make good progress. Pt still with difficulty weight bearing on left side due to pain. Completed 2 sit<>stand xfers with RW and MinAx2. After first xfer, worked on side to side weight shifting. After second, Pt was able to take several steps forward, ambulating two feet. Pt needed cueing for RW use and weight shifting. HR stayed within expected limits during treatment. Pt left sitting in chair with all needs met, call light in reach, and O2 on. Pt will benefit from further skilled PT care to improve weight shift to allow for further ambulation and increased independence prior to d/c home alone. Rec either intermediate card tender rehab or acute rehab. Physical Therapy Goals 1. Morris bed mobility 2. Morris transfer ability 3. Morris gait ambulation for 150 ft with use of RW 4. Morris ability to ascend/descend 1 stair. Patient's Goals
--- NOTE | 2019-02-25 11:49 | Hospitalist Progress Note ---
Subjective Progress Notes Subjective 63M admitted for hip Fx. Slowly progressing, did more work with PT yesterday. Still having urinary retention and some constipation. Patient Complains of: Cardiovascular: No: Chest Pain Gastrointestinal: No Nausea, No Vomiting Physical Exam Vital Signs Date Time Temp Pulse Resp B/P (MAP) Pulse Ox O2 Delivery O2 Flow Rate FiO2 02/25/19 11:23 98.2 97 18 96/64 (75) 94 Nasal Cannula 1.0 Intake and Output 02/25/19 07:00 Intake Total 898 ml Output Total 555 ml Balance 343 ml Intake Oral 480 ml IV Total 418 ml Output Urine Total 475 ml Emesis 80 ml General Appearance: Alert, Awake, No Acute Distress, Afebrile Neuro: No Gross deficits Cardiovascular: Other (irregularly irregular) Respiratory: No Respiratory Distress GI: Soft and Non-Tender, Other (distended, + BS) Extremities: Soft and Non Tender, Warm, Pulses, Perfused Result Diagram: 02/25/1951702/25/19517 Assessment and Plan Problems: (1) Hip fracture Status: Acute Assessment & Plan: Secondary to a fall. He had a gamma nail placed on 02/21/19. He did require Narcan in PACU secondary to prolonged sedation. He is on warfarin/Lovenox for VTE prophylaxis. Slowly progressing with PT, improved after discussion 02.24. (2) New onset atrial fibrillation Status: Acute Assessment & Plan: The patient had a normal heart rate on admission and then developed mild tachycardia. EKG showed atrial fibrillation. Troponin was negative and EKG showed no signs of ischemia. He had an echo in September of this year which was essentially normal with EF of 60-65%. He had a SPECT imaging study in June of 2018 that was negative for ischemia. The patient had been on verapamil and Bystolic at home and his rate was only mildly elevated. He has been restarted on Bystolic and Verapamil with improved heart rate but BP has dropped. He is on warfarin for stroke prophylaxis. Follow INR. Holding verapamil will decrease Bystolic. (3) Urinary retention Assessment & Plan: Trial without catheter and he continues to retain. Will discuss with urology. (4) Ileus Status: Resolved Assessment & Plan: The patient developed abdominal distention and diminished bowel sounds. With this he had nausea, but no vomiting. KUB showed a n onobstructive bowel gas pattern and gaseous distention of the stomach. He was made NPO and monitored. Ultimately, he did have a bowel movement and is eating without difficulty. Continue to monitor. (5) Aspiration pneumonia Status: Acute Assessment & Plan: It appears he probably has an aspiration pneumonia in left lung base. He reports vomiting "at least twice" while he was on the floor at home. He was placed on IV Unasyn, converted to Augmentin. CT scan noted possible contusion, but this is probably an aspiration event. He is very sensitive to narcotics, so have to balance pain control with over sedation. (6) Chronic anticoagulation Status: Chronic Assessment & Plan: He has been on this for a history of DVT. His INR was 2.0 at time of admission. INR now normal. Warfarin restarted and getting Lovenox 40mg a day to bridge. (7) Rhabdomyolysis Status: Resolved Assessment & Plan: Now appears resolved. Due to >24 hours on floor after fall. He did have positive blood on dipstick UA without significant hematuria. He most likely had some myoglobinuria. (8) Polycythemia Status: Chronic Assessment & Plan: Secondary. Likely due to COPD/chronic hypoxia. He has been following with hematology/oncology. (9) Hypertension Status: Chronic Assessment & Plan: Controlled with Bystolic. Lisinopril and Verapamil were initially held. Restarted Verapamil for help with rate control. See above. (10) Type 2 diabetes mellitus Status: Chronic Assessment & Plan: Chronically on Lantus 60 units a day, Farxiga and weekly Trulicity. We have him on ADA diet, low dose Lantus 10 units SQ qHS, and SSI as needed. Restarted Farxiga (still holding Trulicity). Monitor glucoses AC and HS. (11) Subclinical hyperthyroidism Status: Chronic Assessment & Plan: The patient was on methimazole, but stopped it several months ago. He had a thyroid uptake scan in October of this year which was normal. A TSH is low at 0.04. Free T3 low at 1.8 and Free T4 wnl. Will defer to his PCP about restarting methimazole. (12) Depression Status: Chronic Assessment & Plan: Chronically on Venlafaxine, Topamax, Latuda and Austedo. We have restarted those medications. Exam Sepsis Risk: No Definite Risk SPENCER ANAHY LANGFORD DO Feb 25, 2019 11:49
[2019-02-25] MEDS: WARFARIN SOD 5 MG TAB PO SCH (12:32)
--- NOTE | 2019-02-25 13:13 | NUR ---
Occupational Therapy Impression Min Ax2 sit<>stand with RW x2. Mod Ax1-2 ambulation x3ft with RW. VSS throughout. Pt progressing well towards goals, improved strength and mobility noted this date. Pt motivated and very agreeable to engage in tx despite pain in L) LE. No numerical pain rating provided. Pt seated in chair for lunch at end of tx. Declined further needs at this time. Occupational Therapy Goals 1. Pt. to perform dressing activities with Mod A. 2. Pt. to perform showering activities with MOd A. 3. Pt. to perform toileting activities with Mod A. 4. Pt. to perform grooming activities with SIMMS. Patient's Goal
--- NOTE | 2019-02-25 14:54 | CONSULTATION ---
EVENT DATE: February 25, 2019 HISTORY OF PRESENT ILLNESS This is a 63-year old white male whom I was asked to see by the hospitalist. Historically, the patient was admitted on February 18, 2019, after being found on the floor of his home for approximately two days' duration. Reportedly, the patient was responding to a call on his doorbell and had passed out and was lying on the floor for approximately two days. The patient sustained a left hip fracture and contused left lung. Patient has several medical issues: Diabetes mellitus, chronic obstructive airway disease, hypertension, etc. See records for details. Molina was placed until patient has been treated with left hip pinning this past Friday. Postoperatively, the patient appears to be recovering satisfactorily and is gaining strength and appears to be properly oriented at this time. Historically, patient has nocturia none. Flow is good. No dysuria or hematuria. Voids three to four times per day. No trouble with urinary incontinence or urgency of urination. No prior history of urinary tract infections, tract procedures or urolithiasis. Patient was given a trial of voiding this past Sunday, February 24, 2019, and has been unable to urinate satisfactorily. His caretakers are reluctant to use Flomax secondary to his current blood pressure status, which is in the range of approximately 100 systolic. Currently, the patient is being mobilized more, is eating better and stooling. Patient thinks he is significantly improved and progressing satisfactorily. I discussed with the patient the need for more recovery and gaining strength and mobility and possible trial of voiding in a few days if all goes well. IMPRESSION Inability to urinate satisfactorily after a fall sustaining a left hip fracture and operative procedure to repair. Currently, the patient is markedly improved as to general well-being and mental status and is currently oriented. I recommend leaving the Molina in for a few more days until he has recovered and gains strength and mobility. RECOMMENDATIONS Trial of voiding,, probably with medication assistance with Flomax and Urecholine in two to three more days if the patient continues to progress and recover satisfactorily. The patient will possibly be [facility] the [facility] for further convalescence and recovery. I can follow along in that regard with him. Thank you for letting me share in the care of your patient. ELISE
--- NOTE | 2019-02-25 15:08 | NUR ---
This Physical Therapist or Configuration Management Administrator was present for the entire physical therapy session directing the services, making the skilled judgement, and was not engaged in treating another patient or doing another task at the same time as the treatment session. Addendum: 02/25/19 at 1509 by TYRELL SARKAR PT Amended: Links added.
[2019-02-25 15:09] VITALS: BP 104/70
[2019-02-25 19:35] VITALS: BP 100/67
[2019-02-25] MEDS: MIRTAZAPINE PO SCH (21:00)
--- NOTE | 2019-02-25 22:01 | NUR ---
Called Hospitalist with concerns about patient being very lethargic,vitals appear stable.
[2019-02-25 23:04] VITALS: BP 112/68
[2019-02-26 04:14] VITALS: BP 100/64
[2019-02-26] MEDS: ACETAMINOPHEN 500 MG TAB PO SCH (04:18)
[2019-02-26] MEDS: LEVALBUTEROL 1.25 MG/3 ML NEB NEB SCH ×2 (05:19→09:28)
[2019-02-26 05:51] LABS: INR 1.99
[2019-02-26 07:04] VITALS: BP 99/64
[2019-02-26] MEDS: DOCUSATE SODIUM 100 MG CAP PO SCH (08:40)
[2019-02-26] MEDS: PANTOPRAZOLE SOD 40 MG TABEC PO SCH (08:40)
[2019-02-26] MEDS: AMOX/CLAV 875 MG TAB PO SCH (08:40)
[2019-02-26] MEDS: VENLAFAXINE XR 75 MG CAPCR PO SCH (08:41)
[2019-02-26] MEDS: MONTELUKAST SODIUM 10 MG TAB PO SCH (08:42)
[2019-02-26] MEDS: CELECOXIB 200 MG CAP PO SCH (08:42)
[2019-02-26] MEDS: POLYETHYLENE GLYCOL 17 GM PKT PO SCH (08:43)
[2019-02-26] MEDS: DEUTETRABENAZINE 6 MG PO SCH (08:44)
[2019-02-26] MEDS: NEBIVOLOL HCL 5 MG TAB PO SCH (08:44)
[2019-02-26] MEDS: OXcarbazepine 300 MG TAB PO SCH (08:45)
[2019-02-26] MEDS: DAPAGLIFLOZIN PROPANEDIOL 10 MG TABLET PO SCH (08:45)
[2019-02-26] MEDS: TOPIRAMATE 100 MG TAB PO SCH (08:47)
[2019-02-26] MEDS: ENOXAPARIN 40 MG/0.4ML SYR SC SCH (08:48)
--- NOTE | 2019-02-26 09:24 | NUR ---
OCCUPATIONAL THERAPY Dressing Assistance: Max A LB dressing Dressing Aid Required: May benefit from LB AE education Bathing Assistance: N/T with OT Home Assessment: Not Completed Feeding Assistance: Independent Feeding Specialized Equipment: None Toilet Use: Max A. Min Ax1-2 sit<>stand with RW. Verbalizes Needs: Yes Understands Precautions: Yes Cooperative: Yes Family Teaching: No Occupational Therapy Comment:
[2019-02-26] MEDS ORDERED: OXYC5TAB38 PO (10:17)
[2019-02-26] MEDS ORDERED: DAPA10TA PO (10:17)
--- NOTE | 2019-02-26 10:21 | Hospitalist Depart ---
Discharge Summary Reason for Hosp/Final Diag: (1) Hip fracture Status: Acute Hospital Course & Plan: Secondary to a fall. He had a gamma nail placed on 02/21/19. He did require Narcan in PACU secondary to prolonged sedation. He is on warfarin/Lovenox for VTE prophylaxis. Slowly progressing with PT, improved after discussion 02.24. He will transfer to [facility] for further rehab. (2) New onset atrial fibrillation Status: Acute Hospital Course & Plan: The patient had a normal heart rate on admission and then developed mild tachycardia. EKG showed atrial fibrillation. Troponin was negative and EKG showed no signs of ischemia. He had an echo in September of this year which was essentially normal with EF of 60-65%. He had a SPECT imaging s tudy in June of 2018 that was negative for ischemia. The patient had been on verapamil and Bystolic at home and his rate was only mildly elevated. He was restarted on Bystolic and Verapamil with improved heart rate but BP has dropped, so will discontinue Bystolic. He is on warfarin for stroke prophylaxis. Follow INR. (3) Urinary retention Hospital Course & Plan: Trial without catheter and he continues to retain. He will be discharged with Molina Catheter. Dr. Nielsen to follow at [facility]. (4) Ileus Status: Resolved Hospital Course & Plan: The patient developed abdominal distention and diminished bowel sounds. With this he had nausea, but no vomiting. KUB showed a nonobstructive bowel gas pattern and gaseous distention of the stomach. He was made NPO and monitored. Ultimately, he did have a bowel movement and is eating without difficulty. (5) Aspiration pneumonia Status: Acute Hospital Course & Plan: It appears he probably has an aspiration pneumonia in left lung base. He reports vomiting "at least twice" while he was on the floor at home. He was placed on IV Unasyn, converted to Augmentin. CT scan noted possible contusion, but this is probably an aspiration event. He is very sensitive to narcotics, so have to balance pain control with over sedation. (6) Chronic anticoagulation Status: Chronic Hospital Course & Plan: He has been on this for a history of DVT. Warfarin restarted and he was getting Lovenox 40mg a day to bridge. His INR 02/26 is 1.99. (7) Rhabdomyolysis Status: Resolved Hospital Course & Plan: Now appears resolved. Due to >24 hours on floor after fall. He did have positive blood on dipstick UA without significant hematuria. He most likely had some myoglobinuria. (8) Polycythemia Status: Chronic Hospital Course & Plan: Secondary. Likely due to COPD/chronic hypoxia. He has been following with hematology/oncology. (9) Hypertension Status: Chronic Hospital Course & Plan: Controlled with Bystolic. Lisinopril and Verapamil were initially held. Restarted Verapamil for help with rate control. Will hold Bystolic and Lisinopril secondary to decreased blood pressures. See above. (10) Type 2 diabetes mellitus Status: Chronic Hospital Course & Plan: Chronically on Lantus 60 units a day, Farxiga and weekly Trulicity. We have him on ADA diet, and SSI as needed. Restarted Farxiga (still holding Trulicity and Lantus). Monitor glucoses AC and HS. Will defer to PCP when and if to restart Lantus and Trulicity. Fasting glucoses 80-120s. (11) Subclinical hyperthyroidism Status: Chronic Hospital Course & Plan: The patient was on methimazole, but stopped it several months ago. He had a thyroid uptake scan in October of this year which was normal. A TSH is low at 0.04. Free T3 low at 1.8 and Free T4 wnl. Will defer to his PCP about restarting methimazole. (12) Depression Status: Chronic Hospital Course & Plan: Chronically on Venlafaxine, Topamax, Latuda and Austedo. Latuda was not restarted during admission and was held due to not being available. At this point, feel if medication is needed would leave up to PCP to resume at lower loading dose. Will continue Venlafaxine, Topamax and Austedo. He did not have significant withdraw, worsening depression or any suicidal thoughts during admission. Departure Latest Vital Signs Vital Signs 02/26/19 02/26/19 07:04 09:32 Temp 98.2 Pulse 85 Resp 16 B/P (MAP) 99/64 (76) Weight (Pounds): 209 Result Diagram: 02/25/1951702/25/19517 Condition: Improved Discharge: Care Home PT/OT Follow Up For: PT For Strengthening, PT For Surgical Rehab, OT For ADL's, PT Evaluation and Treat, ST Evaluation and Treat, OT Evaluation and Treat Discharge Instructions Home Meds Active Scripts Omeprazole (OMEPRAZOLE) 40 Mg Capsule.dr, 1 CAP PO BID, #180 CAP 2 Refills Prov:CHERI JIMENEZ MD 06/17/16 Reported Medications Mirtazapine (MIRTAZAPINE) 45 Mg Tablet, 45 MG PO QHS 02/20/19 Benztropine Mesylate (BENZTROPINE MESYLATE) 1 Mg Tablet, 1 MG PO BID 02/20/19 Methimazole (METHIMAZOLE) 5 Mg Tablet, 2.5 MG PO QDAY 02/20/19 Verapamil Hcl (VERAPAMIL HCL) 360 Mg Cap24h.pel, 360 MG PO DAILY 02/18/19 Venlafaxine Hcl (VENLAFAXINE HCL ER) 150 Mg Tab.er.24, 150 MG PO QDAY 02/18/19 Deutetrabenazine (Austedo) 6 Mg Tablet, 1 TAB PO BID 02/18/19 Topiramate (TOPAMAX) 100 Mg Tablet, 100 MG PO QDAY 08/31/18 Acetaminophen (TYLENOL) 325 Mg Tablet, 650 MG PO Q6H PRN for PAIN, TAB 11/21/17 Warfarin Sodium (WARFARIN SODIUM) 5 Mg Tablet, 5 MG PO DIRECTED, TAB 5 MG daily 11/21/17 Cholecalciferol (Vitamin D3) (VITAMIN D3) 1,000 Unit Tablet, 2000 UNIT PO QDAY, TAB 11/20/17 Oxcarbazepine (TRILEPTAL) 600 Mg Tablet, 600 MG PO TID 09/18/17 Montelukast Sodium (SINGULAIR) 10 Mg Tablet, 1 TAB PO QDAY, TAB 09/18/17 Rosuvastatin Calcium (CRESTOR) 20 Mg Tablet, 20 MG PO QHS 01/28/17 Multivitamin (MULTI VITAMIN DAILY) 1 Each Tablet, 1 TAB PO DAILY 03/19/16 Columbia-3 Fatty Acids/Fish Oil (FISH OIL 1,000 MG CAPSULE) 1 Each Capsule, 2 CAP PO DAILY, CAPSULE 03/19/16 Oxygen (OXYGEN) Inha, 1 L INH DAILY, L 03/19/16 Ascorbic Acid (VITAMIN C) 1,000 Mg Tablet, 1 TAB PO DAILY 03/19/16 Discontinued Reported Medications Nebivolol Hcl (BYSTOLIC) 5 Mg Tablet, 5 MG PO BID 02/20/19 Topiramate (TOPIRAMATE) 50 Mg Tablet, 50 MG PO QDAY 02/20/19 Warfarin Sodium (WARFARIN SODIUM) 5 Mg Tablet, 7.5 MG PO DIRECTED, TAB take 7.5mg on MO, WE, FR 02/20/19 Lisinopril (LISINOPRIL) 10 Mg Tablet, 10 MG PO QDAY, TAB 02/18/19 Lurasidone Hcl (LATUDA) 60 Mg Tablet, 1 TAB PO DAILY 02/18/19 Insulin Glargine (LANTUS) 100 Unit/Ml Soln, 60 UNIT SUBQ QDAY, ML 08/31/18 Cyclobenzaprine Hcl (CYCLOBENZAPRINE HCL) 10 Mg Tablet, 10 MG PO QHS, #9 TAB 11/19/17 Dulaglutide (Trulicity) 1.5 Mg/0.5 Ml Pen.injctr, 1.5 MG SQ QWK EACH Friday11/19/17 Dapagliflozin Propanediol (Farxiga) 10 Mg Tablet, 1 TAB PO QDAY 02/20/19 Nebivolol Hcl (BYSTOLIC) 10 Mg Tab, 10 MG PO BID, TAB 08/31/18 Furosemide (FUROSEMIDE) 20 Mg Tablet, 1 TAB PO QDAY, TAB 11/20/17 Aripiprazole (ABILIFY) 5 Mg Tablet, 5 MG PO QHS, #10 TAB 11/19/17 Nut.tx.gluc.intoler,Lac-Fr,Soy (Glucerna) 237 Ml Liquid, BID 11/19/17 Mirtazapine (MIRTAZAPINE) 45 Mg Tab.rapdis, 45 MG PO QHS 11/19/17 Duloxetine HCl (Duloxetine HCl) 60 Mg Capsule.dr, 60 MG PO BID TAKE AT 8:00 AM AND 2:00 PM 09/18/17 Warfarin Sodium (WARFARIN SODIUM) 2.5 Mg Tablet, 1 TAB PO Friday @ 1:00 pm 03/19/16 Discontinued Scripts Dapagliflozin Propanediol (Farxiga) 10 Mg Tablet, 1 TAB PO DAILY, #30 TAB 11 Refills Prov:CHERI JIMENEZ MD 08/28/16 Hydrocodone Bit/Acetaminophen (HYDROCODON-ACETAMINOPHEN 5-325) 1 Each Tablet, 1 EACH PO Q4-6H PRN for PAIN, #12 TAKE ONE TABLET BY MOUTH EVERY 4-6 HOURS NEEDED FOR PAIN Prov:JUAN MIGUEL NEWELL DO 08/31/18 Diet: Diabetic Activity: As Tolerated, With Walker Special Instructions: Follow up with Dr. Jimenez in 1 week. Copies to: CHERI JIMENEZ MD ; Venous Thromboembolism Antithrombotics Is Pt On Any Antithrombotics?: No CHELLY SMITH SITE SUPERINTENDENT Feb 26, 2019 10:21
--- NOTE | 2019-02-26 12:36 | NUR ---
PHYSICAL THERAPY INFORMATION TRANSFER SHEET BED MOBILITY: Maximum Assistance 2 person assist TRANSFERS: Minimum Assistance 2 person assist GAIT: 2 ' with O2 RW and Minimum Assistance Moderate Assistance 2 person assist Weightbearing Status: Weight bearing as jenaro STAIRS: with . EXERCISES: Verbalizes Needs: Yes Understands Directions Yes Cooperative: Yes Family Teaching: No Physical Therapy Comment:
== END 2019-02-26 11:55 | disposition hospice, inpatient (51) | DRG 956 ==
LOC: EDUNIT# 21:05 → ER 21:07 → MED 23:40
PROVIDERS: ADMIT Internal Medicine; ATTEND Internal Medicine
PROC: 0QS736Z Reposition Left Upper Femur with Intramedullary Internal Fixation Device, Percutaneous Approach (ICD-10-PCS; principal; 2019-02-21 09:05)
DX: S72.142A Displaced intertrochanteric fracture of left femur, initial encounter for closed fracture (principal); S32.502A Unspecified fracture of left pubis, initial encounter for closed fracture; J69.0 Pneumonitis due to inhalation of food and vomit; M62.82 Rhabdomyolysis; J93.9 Pneumothorax, unspecified; K56.7 Ileus, unspecified; R82.1 Myoglobinuria; I48.91 Unspecified atrial fibrillation; R33.9 Retention of urine, unspecified; D75.1 Secondary polycythemia; J44.9 Chronic obstructive pulmonary disease, unspecified; R09.02 Hypoxemia; I10 Essential (primary) hypertension; E11.9 Type 2 diabetes mellitus without complications; E05.80 Other thyrotoxicosis without thyrotoxic crisis or storm; Z23 Encounter for immunization; F32.9 Major depressive disorder, single episode, unspecified; I25.10 Atherosclerotic heart disease of native coronary artery without angina pectoris; K20.9 Esophagitis, unspecified; W01.0XXA Fall on same level from slipping, tripping and stumbling without subsequent striking against object, initial encounter; Z79.4 Long term (current) use of insulin; Z79.84 Long term (current) use of oral hypoglycemic drugs; Z88.8 Allergy status to other drugs, medicaments and biological substances; Z87.891 Personal history of nicotine dependence; Z79.01 Long term (current) use of anticoagulants
CPT/HCPCS: 36415; 36416; 70450; 71045; 71260; 72125; 72170; 74018; 74177; 76000; 76942; 80320; 81001; 82040; 82247; 82310; 82374; 82435; 82550; 82565; 82803; 82947; 82948; 83036; 83605; 83690; 83735; 83880; 84075; 84132; 84155; 84295; 84439; 84443; 84450; 84460; 84481; 84484; 84520; 85025; 85610; 85730; 86850; 86900; 86901; 90471; 90715; 93005; 94640; 94667; 94668; 96361; 96374; 97163; 97166; 99285; C1713; C1758; C9113; J0131; J0295; J1100; J1170; J1650; J1815; J2001; J2250; J2270; J2310; J2405; J2704; J2795; J3010; J3490; J7030; Q9967

== ENCOUNTER → 2019-02-17 | Outpatient (CLI) | payer MEDICAID ==
[~2019-02-17] MED LIST changes: +BENZ1 PO; +DEUT6TAB PO; +LISI-362 PO; +LURA60TA PO; +METH5TAB87 PO; +MIRT45TA8 PO; +TOPI50TA92 PO; +VENL150T10 PO
== END ==
LOC: AMB 20:24
DX: M25.552 Pain in left hip (principal); M54.5 Low back pain; M54.2 Cervicalgia; M25.512 Pain in left shoulder
CPT/HCPCS: A0425; A0427

== ENCOUNTER → 2019-03-03 | Outpatient (REF) | payer MEDICAID ==
[~2019-03-03] MED LIST changes: +BENZ1 PO; +DEUT6TAB PO; +LISI-362 PO; +LURA60TA PO; +METH5TAB87 PO; +MIRT45TA8 PO; +OXYC5TAB38 PO; +TOPI50TA92 PO; +VENL150T10 PO
== END ==
LOC: ZZLCC 14:44
PROVIDERS: ATTEND Family Medicine
DX: D75.1 Secondary polycythemia (principal); S72.142D Displaced intertrochanteric fracture of left femur, subsequent encounter for closed fracture with routine healing; E05.90 Thyrotoxicosis, unspecified without thyrotoxic crisis or storm; E11.9 Type 2 diabetes mellitus without complications; F06.8 Other specified mental disorders due to known physiological condition; F31.32 Bipolar disorder, current episode depressed, moderate; I10 Essential (primary) hypertension; J69.0 Pneumonitis due to inhalation of food and vomit; Z79.01 Long term (current) use of anticoagulants
CPT/HCPCS: 81001; 87088

== ENCOUNTER → 2019-03-04 | Outpatient (REF) | payer MEDICAID ==
[2019-03-04 10:05] LABS: INR 1.13
== END ==
LOC: ZZLCC 09:49
PROVIDERS: ATTEND Family Medicine
DX: D72.829 Elevated white blood cell count, unspecified (principal)
CPT/HCPCS: 85027; 85610

== ENCOUNTER → 2019-03-04 | Outpatient (CLI) | payer MEDICAID ==
--- NOTE | 2019-03-04 11:43 | RADIOLOGY IMAGING REPORT ---
FACILITY: [facility] PATIENT NAME: Cirilo Savage : 1955 MR: [id number] V: [id number] EXAM DATE: ORDERING PHYSICIAN: TABATHA MOLINA TECHNOLOGIST: Location: [facility] Patient: Cirilo Savage : 1955 Visit/Account:[id number] Date of Sevice: 03/04/2019 Chest 2 views: HISTORY: Elevated white blood cell count COMPARISON: 02/21/2019, 05/27/2018 FINDINGS: Frontal and lateral chest: Cardiomediastinal silhouette is within normal limits. Patchy op acity in the left lung base somewhat more pronounced compared to the prior 2 studies suggest atelecta sis or possibly developing infiltrate. Serial imaging may be considered if there is concern for pneu monia. There is no pleural effusion or pneumothorax. Pulmonary vasculature is normal. Degenerative changes present in the thoracic spine. IMPRESSION: Vague left basilar opacity, atelectasis versus developing infiltrate. Report Dictated By: Rita Rodriguez MD at 03/04/2019 11:34 AM Report E-Signed By: Rita Rodriguez MD at 03/04/2019 11:37 AM WSN:[email or web address]
== END ==
LOC: RAD 10:29
PROVIDERS: ATTEND Family Medicine
DX: D72.829 Elevated white blood cell count, unspecified (principal)
CPT/HCPCS: 71046

== ENCOUNTER → 2019-03-06 | Outpatient (REF) | payer MEDICAID ==
[2019-03-06 12:41] LABS: INR 1.29
== END ==
LOC: ZZLCC 11:13
PROVIDERS: ATTEND Family Medicine
DX: Z51.81 Encounter for therapeutic drug level monitoring (principal); Z79.01 Long term (current) use of anticoagulants
CPT/HCPCS: 85610

== ENCOUNTER → 2019-03-26 | Outpatient (CLI) | payer MEDICAID ==
--- NOTE | 2019-03-26 13:37 | RADIOLOGY IMAGING REPORT ---
[place] [facility] [place]IENT NAME: Cirilo Savage : 1955 MR: [id number] V: [id number] EXAM DATE: ORDERING PHYSICIAN: TABATHA MOLINA TECHNOLOGIST: Location: [facility] [place] Patient: Cirilo Savage : 1955 Visit/Account:[id number] Date of Sevice: 03/26/2019 Chest with lateral, two views. HISTORY: Elevated white blood cell count. COMPARISON: 03/04/2019. Three images were obtained. The cardiac apical fat pad is somewhat prominent, essentially unchanged. The heart and mediastinum are otherwise unremarkable. No bulky adenopathy. Pulmonary vessels are unremarkable. The lungs are otherwise clear. The pleural surfaces are unremarkable. No pneumothorax. Degenerative changes are present in the spine. IMPRESSION: No evidence of acute cardiopulmonary disease. Report Dictated By: Jn Whitfield MD at 03/26/2019 1:29 PM Report E-Signed By: Jn Whitfield MD at 03/26/2019 1:31 PM WSN:[email or web address]
== END ==
LOC: RAD 12:53
PROVIDERS: ATTEND Family Medicine
DX: D72.829 Elevated white blood cell count, unspecified (principal)
CPT/HCPCS: 71046

== ENCOUNTER → 2019-03-27 | Outpatient (REF) | payer MEDICAID | LOC: ZZLCC 06:43 | PROVIDERS: ATTEND Family Medicine | DX: R53.83 Other fatigue (principal); D72.829 Elevated white blood cell count, unspecified | CPT/HCPCS: 81001 ==

== ENCOUNTER → 2019-03-29 | Outpatient (REF) | payer MEDICAID | LOC: ZZLCC 11:58 | PROVIDERS: ATTEND Family Medicine | DX: J69.0 Pneumonitis due to inhalation of food and vomit (principal); N13.9 Obstructive and reflux uropathy, unspecified; D72.829 Elevated white blood cell count, unspecified | CPT/HCPCS: 82040; 82247; 82310; 82374; 82435; 82565; 82947; 84075; 84132; 84155; 84295; 84450; 84460; 84520; 85027 ==

== ENCOUNTER → 2019-04-05 | Outpatient (REF) | payer MEDICAID | LOC: ZZLCC 22:37 | DX: R32 Unspecified urinary incontinence (principal) | CPT/HCPCS: 81001; 87088 ==